=== PATIENT | female | born 2000 | race Caucasian/White ===

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

== ENCOUNTER 2019-03-12 11:21 | Emergency (ER) | payer MEDICAID, OTHER ==
--- NOTE | 2019-03-12 11:52 | ERPHSYRPT ---
- History of Present Illness Time Seen by Provider: 03/12/19 11:49 Source: patient Exam Limitations: no limitations Physician History: 18-year-old white female arrives with complaint of feeling like her legs are swollen off and on for 2 months she states the swelling comes and goes Past medical history is negative Past surgical history includes appendectomy and eye surgery Last menstrual period 3 weeks ago Timing/Duration: other (2-3 months) Severity: mild Modifying Factors: Improves With: nothing Associated Symptoms: No nausea, No vomiting, No abdominal pain, No shortness of breath, No heartburn, No diaphoresis, No cough, No chills, No chest pain, No fever, No headaches, No loss of appetite (T1 wash her ear out), No malaise, No rash, No syncope, No seizure, No weakness Allergies/Adverse Reactions: venom-honey bee [bee venom (honey bee)] Allergy (Verified 04/21/18 06:41) Hx Tetanus, Diphtheria Vaccination/Date Given: Yes Hx Influenza Vaccination/Date Given: No Hx Pneumococcal Vaccination/Date Given: No - Review of Systems Constitutional: No Symptoms, No Fever, No Chills Eyes: No Symptoms Ears, Nose, & Throat: Other (left ear feels full), No Ear Discharge, No Hearing Changes, No Tinnitus, No Nose Pain, No Nose Congestion, No Nose Discharge, No Sinus Drainage, No Epistaxis, No Mouth Pain, No Mouth Swelling, No Loose Teeth, No Throat Pain, No Throat Swelling, No Hoarse, No Painful Swallowing, No Snoring , No Stridor Respiratory: No Cough, No Dyspnea Cardiac: Edema (lower extremity edema), No Chest Pain, No Syncope Abdominal/Gastrointestinal: No Abdominal Pain, No Nausea, No Vomiting, No Diarrhea Genitourinary Symptoms: No Dysuria Musculoskeletal: No Back Pain, No Neck Pain Skin: No Rash Neurological: No Dizziness, No Focal Weakness, No Sensory Changes Psychological: No Symptoms Endocrine: No Symptoms All Other Systems: Reviewed and Negative - Past Medical History Pertinent Past Medical History: Yes Neurological History: No Pertinent History ENT History: No Pertinent History Cardiac History: No Pertinent History Respiratory History: No Pertinent History Endocrine Medical History: No Pertinent History Musculoskeletal History: Fractures GI Medical History: No Pertinent History History: No Pertinent History Psycho-Social History: No Pertinent History Female Reproductive Disorders: No Pertinent History - Past Surgical History Past Surgical History: Yes Neuro Surgical History: No Pertinent History Cardiac: No Pertinent History Respiratory: No Pertinent History Gastrointestinal: Appendectomy Genitourinary: No Pertinent History Musculoskeletal: No Pertinent History Female Surgical History: No Pertinent History Other Surgical History: eye surgery - Social History Smoking Status: Current every day smoker Exposure to second hand smoke: No Drug Use: none Patient Lives Alone: No - Nursing Vital Signs Nursing Vital Signs: Initial Vital Signs Temperature 98.5 F 03/12/19 11:43 Pulse Rate 84 03/12/19 11:43 Respiratory Rate 16 03/12/19 11:43 Blood Pressure 140/82 03/12/19 11:43 O2 Sat by Pulse Oximetry 100 03/12/19 11:43 Pain Scale Pain Intensity 0 - Physical Exam General Appearance: no apparent distress, alert Eye Exam: PERRL/EOMI, eyes nml inspection Ears, Nose, Throat Exam: pharynx normal, moist mucous membranes, other (cerumen in left ear canal), No dry mucous membranes Neck Exam: normal inspection, non-tender, supple, full range of motion Respiratory Exam: normal breath sounds, lungs clear, No respiratory distress Cardiovascular Exam: regular rate/rhythm, normal heart sounds, normal peripheral pulses, capillary refill <2 sec Gastrointestinal/Abdomen Exam: soft, normal bowel sounds, No tenderness, No mass Back Exam: normal inspection, normal range of motion, No CVA tenderness, No vertebral tenderness Extremity Exam: normal inspection, normal range of motion, pelvis stable Neurologic Exam: alert, oriented x 3, cooperative, administrative assistant II-XII nml as tested, normal mood/affect, nml cerebellar function, nml station & gait, sensation nml, No motor deficits Skin Exam: normal color, warm, dry, No rash Lymphatic Exam: No adenopathy (bbolus her sats) SpO2 Interpretation: normal (100%) - Course Nursing assessment & vital signs reviewed: Yes EKG Interpreted by Me: RATE (81 bpm), Sinus Rhythm, NORMAL AXIS, Other (EKG: Sinus rhythm, 81 beats per minute, normal axis, no acute ST or T wave changes, normal EKG) Ordered Tests: Active Orders 24 hr Category Date Time Status EKG-ER Only STAT Care 03/12/19 11:53 Active CBC W DIFF Stat Lab 03/12/19 12:15 Completed CMP Stat Lab 03/12/19 12:15 Completed HCG QUALITATIVE,SERUM Stat Lab 03/12/19 12:15 Completed UA W/RFX UR CULTURE Stat Lab 03/12/19 11:49 Completed Lab/Rad Data: Laboratory Result Diagrams 03/12/19 12:15 03/12/19 12:15 Laboratory Results 03/12/19 03/12/19 03/12/19 Range/Units 12:15 12:15 12:15 WBC 11.9 H (4.0-10.5) K/mm3 RBC 4.77 (4.1-5.4) M/mm3 Hgb 13.3 (12.0-16.0) gm/dl Hct 40.5 (35-47) % MCV 84.9 (78-100) fl MCH 27.9 (26-32) pg MCHC 32.8 (32-36) g/dl RDW 12.9 (11.5-14.0) % Plt Count 298 (150-450) K/mm3 MPV 10.1 H (6-9.5) fl Gran % 71.3 H (36.0-66.0) % Eos # (Auto) 0.24 (0-0.5) Absolute Lymphs (auto) 2.17 (1.0-4.6) Absolute Monos (auto) 0.99 (0.0-1.3) Lymphocytes % 18.2 L (24.0-44.0) % Monocytes % 8.3 (0.0-12.0) % Eosinophils % 2.0 (0.00-5.0) % Basophils % 0.2 (0.0-0.4) % Absolute Granulocytes 8.52 H (1.4-6.9) Basophils # 0.02 (0-0.4) Sodium 139 (137-145) mmol/L Potassium 4.1 (3.5-5.1) mmol/L Chloride 108 H (98-107) mmol/L Carbon Dioxide 22 (22-30) mmol/L Anion Gap 12.2 (5-15) MEQ/L BUN 8 (7-17) mg/dL Creatinine 0.67 (0.52-1.04) mg/dL Estimated GFR > 60.0 ML/MIN Glucose 86 (74-106) mg/dL Calcium 9.0 (8.4-10.2) mg/dL Total Bilirubin 0.50 (0.2-1.3) mg/dL AST 28 (14-36) U/L ALT 17 (0-35) U/L Alkaline Phosphatase 57 (38-126) U/L Serum Total Protein 5.6 L (6.3-8.2) g/dL Albumin 3.2 L (3.5-5.0) g/dL Serum , Qual NEGATIVE (Negative) Urine Color (YELLOW) Urine Appearance (CLEAR) Urine pH (5-6) Ur Specific [place] (1.005-1.025) Urine Protein (Negative) Urine Ketones (NEGATIVE) Urine Blood (0-5) Ranjeet/ul Urine Nitrite (NEGATIVE) Urine Bilirubin (NEGATIVE) Urine Urobilinogen (0-1) mg/dL Ur Leukocyte Esterase (NEGATIVE) Urine WBC (Auto) (0-5) /HPF Urine RBC (Auto) (0-2) /HPF U Epithel Cells (Auto) (FEW) /HPF Urine Bacteria (Auto) (NEGATIVE) /HPF Urine Mucus (Auto) (NEGATIVE) /HPF Urine Culture Reflexed (NO) Urine Glucose (NEGATIVE) mg/dL 03/12/19 Range/Units 11:49 WBC (4.0-10.5) K/mm3 RBC (4.1-5.4) M/mm3 Hgb (12.0-16.0) gm/dl Hct (35-47) % MCV (78-100) fl MCH (26-32) pg MCHC (32-36) g/dl RDW (11.5-14.0) % Plt Count (150-450) K/mm3 MPV (6-9.5) fl Gran % (36.0-66.0) % Eos # (Auto) (0-0.5) Absolute Lymphs (auto) (1.0-4.6) Absolute Monos (auto) (0.0-1.3) Lymphocytes % (24.0-44.0) % Monocytes % (0.0-12.0) % Eosinophils % (0.00-5.0) % Basophils % (0.0-0.4) % Absolute Granulocytes (1.4-6.9) Basophils # (0-0.4) Sodium (137-145) mmol/L Potassium (3.5-5.1) mmol/L Chloride (98-107) mmol/L Carbon Dioxide (22-30) mmol/L Anion Gap (5-15) MEQ/L BUN (7-17) mg/dL Creatinine (0.52-1.04) mg/dL Estimated GFR ML/MIN Glucose (74-106) mg/dL Calcium (8.4-10.2) mg/dL Total Bilirubin (0.2-1.3) mg/dL AST (14-36) U/L ALT (0-35) U/L Alkaline Phosphatase (38-126) U/L Serum Total Protein (6.3-8.2) g/dL Albumin (3.5-5.0) g/dL Serum , Qual (Negative) Urine Color YELLOW (YELLOW) Urine Appearance SLIGHTLY CLOUDY (CLEAR) Urine pH 6.0 (5-6) Ur Specific [place] 1.025 (1.005-1.025) Urine Protein NEGATIVE (Negative) Urine Ketones NEGATIVE (NEGATIVE) Urine Blood NEGATIVE (0-5) Ranjeet/ul Urine Nitrite NEGATIVE (NEGATIVE) Urine Bilirubin NEGATIVE (NEGATIVE) Urine Urobilinogen 2 (0-1) mg/dL Ur Leukocyte Esterase NEGATIVE (NEGATIVE) Urine WBC (Auto) 0-2 (0-5) /HPF Urine RBC (Auto) NONE (0-2) /HPF U Epithel Cells (Auto) RARE (FEW) /HPF Urine Bacteria (Auto) NONE SEEN (NEGATIVE) /HPF Urine Mucus (Auto) MODERATE (NEGATIVE) /HPF Urine Culture Reflexed NO (NO) Urine Glucose NEGATIVE (NEGATIVE) mg/dL - Progress Progress: improved Progress Note: 03/12/19 12:38 18-year-old white female arrives with complaint of edema on her lower extremities off and on for 2-3 months. On physical examination I see no signs of edema patient's chemistry urinalysis CBC all normal. Patient also complaining of feeling like her left ear is clogged. Patient does have cerumen in her left ear canal. Will go ahead and release patient patient to use OTC Debrox for her ear. Followup with her family . - Departure Departure Disposition: Home Clinical Impression: reported lower extremity edema Cerumen impaction Qualifiers: Laterality: left Qualified Code(s): H61.22 - Impacted cerumen, left ear Condition: Fair Critical Care Time: No Referrals: GHAZAL NEWBERRY MD [Primary Care Provider] - Additional Instructions: Return home. Today I do not see obvious edema sometimes you can get edema from the heat or excessive salt intake. Followup with your family if this continues to cause problems with you. Debrox (OTC) left ear as directed for cerumen. Followup with your family . Return for acute distress severe symptoms or for any problems.
[2019-03-12 12:15] LABS: Appearance SLIGHTLY CLOUDY (CLEAR); Bilirubin NEGATIVE (NEGATIVE); Blood NEGATIVE Ery/ul (0-5); Epithelial Cells RARE /HPF (FEW); Glucose NEGATIVE (NEGATIVE); Ketones NEGATIVE (NEGATIVE); Leukocyte Esterase NEGATIVE (NEGATIVE); Mucus MODERATE /HPF (NEGATIVE); Nitrite NEGATIVE (NEGATIVE); Protein,Urine Dip NEGATIVE (Negative); Specific Gravity 1.025 (1.005-1.025); Urobilinogen 2 mg/dL (0-1); WBC 0-2 /HPF (0-5)
[2019-03-12 12:16] LABS: Bacteria NONE SEEN /HPF (NEGATIVE)
[2019-03-12 12:24] LABS: BASOPHIL % 0.2 % (0.0-0.4); Basophil (Absolute #) 0.02 (0-0.4); Eosinophil (Absolute #) 0.24 (0-0.5); Granulocyte Absolute (ANC) 8.52 (1.4-6.9); Granulocytes % 71.3 % (36.0-66.0); Hematocrit 40.5 % (35-47); Hemoglobin 13.3 gm/dl (12.0-16.0); Lymphocyte (Absolute #) 2.17 (1.0-4.6); Lymphocytes % 18.2 % (24.0-44.0); Mean Cell Volume 84.9 fl (78-100); Mean Corpuscular Hemoglobin 27.9 pg (26-32); Mean Corpuscular Hgb Concent. 32.8 g/dl (32-36); Mean Platelet Volume 10.1 fl (6-9.5); Monocyte (Absolute #) 0.99 (0.0-1.3); Monocytes % 8.3 % (0.0-12.0); Platelet Count 298 K/mm3 (150-450); Red Blood Count 4.77 M/mm3 (4.1-5.4); Red Cell Distribution Width 12.9 % (11.5-14.0); White Blood Count 11.9 K/mm3 (4.0-10.5)
[2019-03-12 12:31] LABS: ALBUMIN 3.2 g/dL (3.5-5.0); ALKALINE PHOSPHATASE 57 U/L (38-126); ANION GAP 12.2 MEQ/L (5-15); BLOOD UREA NITROGEN 8 mg/dL (7-17); CHLORIDE 108 mmol/L (98-107); Carbon Dioxide 22 mmol/L (22-30); Creatinine 1 0.67 mg/dL (0.52-1.04); Glucose 86 mg/dL (74-106); Potassium 4.1 mmol/L (3.5-5.1); SGOT/AST 28 U/L (14-36); SGPT/ALT 17 U/L (0-35); SODIUM 139 mmol/L (137-145); Total Protein 5.6 g/dL (6.3-8.2)
[2019-03-12 13:42] VITALS: BP 136/82; PULSE 74; O2SAT 97
== END 2019-03-12 13:42 | disposition home or self-care (01) ==
LOC: ED 11:21
DX: R60.0 Localized edema (principal); H61.22 Impacted cerumen, left ear
CPT/HCPCS: 36415; 80053; 81001; 81025; 85025; 93005; 99283

== ENCOUNTER 2019-05-08 09:45 | Emergency (ER) | payer MEDICAID ==
[2019-05-08 10:09] VITALS: BP 118/72
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
[2019-05-08 11:55] VITALS: PULSE 76; O2SAT 99
== END 2019-05-08 11:58 | disposition home or self-care (01) ==
LOC: ED 09:45
DX: S00.93XA Contusion of unspecified part of head, initial encounter (principal); Y04.0XXA Assault by unarmed brawl or fight, initial encounter
CPT/HCPCS: 70450; 99283

== ENCOUNTER 2019-11-02 08:52 | Emergency (ER) | payer MEDICAID ==
--- NOTE | 2019-11-02 08:55 | ERPHSYRPT ---
- History of Present Illness Time Seen by Provider: 11/02/19 08:55 Source: patient, family Exam Limitations: no limitations Physician History: 19 y/o white female presents with 1 week h/o "not feeling well". pt states abd pain mid abd cramping for 4 days. 2 day h/o n/v/d. pt denies vaginal bleeding, rectal bleeding, vaginal discharge or urinary sx. pt has had an appendectomy in the past. Timing/Duration: week(s), worse Severity: mild Associated Symptoms: nausea, vomiting, abdominal pain Allergies/Adverse Reactions: venom-honey bee [bee venom (honey bee)] Allergy (Verified 11/02/19 09:07) Hx Tetanus, Diphtheria Vaccination/Date Given: Yes Hx Influenza Vaccination/Date Given: No Hx Pneumococcal Vaccination/Date Given: No - Review of Systems Constitutional: No Symptoms Eyes: No Symptoms Ears, Nose, & Throat: No Symptoms Respiratory: No Symptoms Cardiac: No Symptoms Abdominal/Gastrointestinal: Abdominal Pain, Nausea, Vomiting, Diarrhea Genitourinary Symptoms: No Symptoms Musculoskeletal: No Symptoms Skin: No Symptoms Neurological: No Symptoms Psychological: No Symptoms Endocrine: No Symptoms Hematologic/Lymphatic: No Symptoms Immunological/Allergic: No Symptoms All Other Systems: Reviewed and Negative - Past Medical History Pertinent Past Medical History: Yes Neurological History: No Pertinent History ENT History: No Pertinent History Cardiac History: No Pertinent History Respiratory History: No Pertinent History Endocrine Medical History: No Pertinent History Musculoskeletal History: Fractures GI Medical History: No Pertinent History History: No Pertinent History Psycho-Social History: No Pertinent History Female Reproductive Disorders: No Pertinent History - Past Surgical History Past Surgical History: Yes Neuro Surgical History: No Pertinent History Cardiac: No Pertinent History Respiratory: No Pertinent History Gastrointestinal: Appendectomy Genitourinary: No Pertinent History Musculoskeletal: No Pertinent History Female Surgical History: No Pertinent History Other Surgical History: eye surgery - Social History Smoking Status: Current every day smoker Exposure to second hand smoke: No Drug Use: none Patient Lives Alone: No - Nursing Vital Signs Nursing Vital Signs: Initial Vital Signs Temperature 98.1 F 11/02/19 09:02 Pulse Rate 88 11/02/19 09:02 Respiratory Rate 18 11/02/19 09:02 Blood Pressure 115/82 11/02/19 09:02 O2 Sat by Pulse Oximetry 98 11/02/19 09:02 Pain Scale Pain Intensity 6 - Physical Exam General Appearance: mild distress, alert, anxiety Eye Exam: PERRL/EOMI, eyes nml inspection Ears, Nose, Throat Exam: normal ENT inspection, moist mucous membranes Neck Exam: normal inspection, non-tender, supple, full range of motion Respiratory Exam: normal breath sounds, lungs clear, airway intact, No chest tenderness, No respiratory distress Cardiovascular Exam: regular rate/rhythm, normal heart sounds, normal peripheral pulses Gastrointestinal/Abdomen Exam: soft, normal bowel sounds, tenderness (mild diffuse), No guarding, No rebound Pelvic Exam: not done Rectal Exam: not done Back Exam: normal inspection, normal range of motion, No CVA tenderness Extremity Exam: normal inspection, normal range of motion, pelvis stable Neurologic Exam: alert, oriented x 3, cooperative, institutional aide II-XII nml as tested, normal mood/affect, nml cerebellar function, nml station & gait, sensation nml Skin Exam: normal color, warm, dry Lymphatic Exam: adenopathy SpO2 Interpretation: normal O2 Delivery: Room Air - Course Nursing assessment & vital signs reviewed: Yes Ordered Tests: Active Orders 24 hr Category Date Time Status IV Insertion STAT Care 11/02/19 09:27 Active ABDOMEN AND PELVIS W/0 CONTRAS [CT] Stat Exams 11/02/19 09:27 Completed AMYLASE Stat Lab 11/02/19 09:52 Completed CBC W DIFF Stat Lab 11/02/19 09:52 Completed CMP Stat Lab 11/02/19 09:52 Completed CULTURE,URINE Stat Lab 11/02/19 09:52 Received HCG,QUALITATIVE URINE Stat Lab 11/02/19 09:52 Completed LIPASE Stat Lab 11/02/19 09:52 Completed Lactic Acid Stat Lab 11/02/19 09:48 Completed UA W/RFX UR CULTURE Stat Lab 11/02/19 09:52 Completed Medication Summary Discontinued Medications Generic Name Dose Route Start Last Admin Trade Name Freq PRN Reason Stop Dose Admin Fluconazole 150 mg 11/02/19 11:23 Diflucan PO 11/02/19 11:24 STAT ONE Sodium Chloride 1,000 mls @ 999 mls/hr 11/02/19 09:27 11/02/19 11:19 Sodium Chloride 0.9% 1000 Ml IV 11/02/19 10:27 Infused .Q1H1M STA Infusion Sodium Chloride Confirm 11/02/19 09:43 Sodium Chloride 0.9% 1000 Ml Administered 11/02/19 09:44 Dose 1,000 mls @ ud .ROUTE .STK-MED ONE Ondansetron HCl 4 mg 11/02/19 09:27 11/02/19 09:47 Zofran 4 Mg/2 Ml Vial IV 11/02/19 09:28 4 mg STAT ONE Administration Ondansetron HCl Confirm 11/02/19 09:43 Zofran 4 Mg/2 Ml Vial Administered 11/02/19 09:44 Dose 4 mg .ROUTE .STK-MED ONE Lab/Rad Data: Laboratory Result Diagrams 11/02/19 09:52 11/02/19 09:52 Laboratory Results 11/02/19 11/02/19 11/02/19 Range/Units 09:52 09:52 09:52 WBC (4.0-10.5) K/mm3 RBC (4.1-5.4) M/mm3 Hgb (12.0-16.0) gm/dl Hct (35-47) % MCV (78-100) fl MCH (26-32) pg MCHC (32-36) g/dl RDW (11.5-14.0) % Plt Count (150-450) K/mm3 MPV (7.5-11.0) fl Gran % (36.0-66.0) % Eos # (Auto) (0-0.5) Absolute Lymphs (auto) (1.0-4.6) Absolute Monos (auto) (0.0-1.3) Lymphocytes % (24.0-44.0) % Monocytes % (0.0-12.0) % Eosinophils % (0.00-5.0) % Basophils % (0.0-0.4) % Absolute Granulocytes (1.4-6.9) Basophils # (0-0.4) Sodium (137-145) mmol/L Potassium (3.5-5.1) mmol/L Chloride (98-107) mmol/L Carbon Dioxide (22-30) mmol/L Anion Gap (5-15) MEQ/L BUN (7-17) mg/dL Creatinine (0.52-1.04) mg/dL Estimated GFR ML/MIN Glucose (74-106) mg/dL Lactic Acid (0.4-2.0) Calcium (8.4-10.2) mg/dL Total Bilirubin (0.2-1.3) mg/dL AST (14-36) U/L ALT (0-35) U/L Alkaline Phosphatase (38-126) U/L Serum Total Protein (6.3-8.2) g/dL Albumin (3.5-5.0) g/dL Amylase (30-110) U/L Lipase (23-300) U/L Urine Color YELLOW (YELLOW) Urine Appearance TURBID (CLEAR) Urine pH 5.0 (5-6) Ur Specific [place] 1.030 (1.005-1.025) Urine Protein NEGATIVE (Negative) Urine Ketones NEGATIVE (NEGATIVE) Urine Blood NEGATIVE (0-5) Ranjeet/ul Urine Nitrite NEGATIVE (NEGATIVE) Urine Bilirubin NEGATIVE (NEGATIVE) Urine Urobilinogen NEGATIVE (0-1) mg/dL Ur Leukocyte Esterase NEGATIVE (NEGATIVE) Urine WBC (Auto) 3-5 (0-5) /HPF Urine RBC (Auto) 0-2 (0-2) /HPF U Epithel Cells (Auto) FEW (FEW) /HPF Urine Bacteria (Auto) MODERATE (NEGATIVE) /HPF Amorphous Crystals MANY (NEGATIVE) /HPF Urine Mucus (Auto) SLIGHT (NEGATIVE) /HPF Urine Yeast (Budding) Rare (NEGATIVE) /HPF Urine Culture Reflexed YES (NO) Urine Glucose NEGATIVE (NEGATIVE) mg/dL Urine HCG, Qual NEGATIVE (Negative) Influenza Type A Ag NEGATIVE (NEGATIVE) Influenza Type B Ag NEGATIVE (NEGATIVE) RSV (PCR) NEGATIVE (Negative) 11/02/19 11/02/19 11/02/19 Range/Units 09:52 09:52 09:48 WBC 12.9 H (4.0-10.5) K/mm3 RBC 4.93 (4.1-5.4) M/mm3 Hgb 13.7 (12.0-16.0) gm/dl Hct 40.6 (35-47) % MCV 82.4 (78-100) fl MCH 27.8 (26-32) pg MCHC 33.7 (32-36) g/dl RDW 13.4 (11.5-14.0) % Plt Count 287 (150-450) K/mm3 MPV 10.4 (7.5-11.0) fl Gran % 78.3 H (36.0-66.0) % Eos # (Auto) 0.31 (0-0.5) Absolute Lymphs (auto) 1.34 (1.0-4.6) Absolute Monos (auto) 1.13 (0.0-1.3) Lymphocytes % 10.4 L (24.0-44.0) % Monocytes % 8.8 (0.0-12.0) % Eosinophils % 2.4 (0.00-5.0) % Basophils % 0.1 (0.0-0.4) % Absolute Granulocytes 10.11 H (1.4-6.9) Basophils # 0.01 (0-0.4) Sodium 142 (137-145) mmol/L Potassium 3.5 (3.5-5.1) mmol/L Chloride 107 (98-107) mmol/L Carbon Dioxide 23 (22-30) mmol/L Anion Gap 15.0 (5-15) MEQ/L BUN 9 (7-17) mg/dL Creatinine 0.71 (0.52-1.04) mg/dL Estimated GFR > 60.0 ML/MIN Glucose 78 (74-106) mg/dL Lactic Acid 0.7 (0.4-2.0) Calcium 9.4 (8.4-10.2) mg/dL Total Bilirubin 0.40 (0.2-1.3) mg/dL AST 26 (14-36) U/L ALT 19 (0-35) U/L Alkaline Phosphatase 114 (38-126) U/L Serum Total Protein 7.2 (6.3-8.2) g/dL Albumin 4.2 (3.5-5.0) g/dL Amylase 66 (30-110) U/L Lipase 45 (23-300) U/L Urine Color (YELLOW) Urine Appearance (CLEAR) Urine pH (5-6) Ur Specific [place] (1.005-1.025) Urine Protein (Negative) Urine Ketones (NEGATIVE) Urine Blood (0-5) Ranjeet/ul Urine Nitrite (NEGATIVE) Urine Bilirubin (NEGATIVE) Urine Urobilinogen (0-1) mg/dL Ur Leukocyte Esterase (NEGATIVE) Urine WBC (Auto) (0-5) /HPF Urine RBC (Auto) (0-2) /HPF U Epithel Cells (Auto) (FEW) /HPF Urine Bacteria (Auto) (NEGATIVE) /HPF Amorphous Crystals (NEGATIVE) /HPF Urine Mucus (Auto) (NEGATIVE) /HPF Urine Yeast (Budding) (NEGATIVE) /HPF Urine Culture Reflexed (NO) Urine Glucose (NEGATIVE) mg/dL Urine HCG, Qual (Negative) Influenza Type A Ag (NEGATIVE) Influenza Type B Ag (NEGATIVE) RSV (PCR) (Negative) - Progress Progress: improved Progress Note: 11/02/19 11:25 ct abd/pelvis-colonic diarrhea Counseled pt/family regarding: lab results, diagnosis, need for follow-up, rad results - Departure Departure Disposition: Home Clinical Impression: Diarrhea, Yeast UTI Condition: Stable Critical Care Time: No Referrals: GHAZAL NEWBERRY MD [Primary Care Provider] - Additional Instructions: drink plenty of fluids. follow up with primary doctor for persistent symptoms Prescriptions: Metronidazole 500 mg [Flagyl 500 MG] 500 mg PO TID #21 tablet Ondansetron HCl [Zofran] 4 mg PO TID PRN #10 tablet PRN Reason: Nausea/Vomiting
[2019-11-02] MEDS ORDERED: Zofran 4 MG/2 ML VIAL IV ONE (09:27)
[2019-11-02] MEDS ORDERED: Sodium Chloride 0.9% 1000 ML 1,000 ML IV STA (09:27)
[2019-11-02] MEDS ORDERED: Zofran 4 MG/2 ML VIAL ONE (09:43)
[2019-11-02] MEDS ORDERED: Sodium Chloride 0.9% 1000 ML 1,000 ML ONE (09:43)
[2019-11-02 09:52] LABS: Absolute Neutrophil Ct (ANC) 10.11 (1.4-6.9); BASOPHIL % 0.1 % (0.0-0.4); Basophil (Absolute #) 0.01 (0-0.4); Eosinophil % 2.4 % (0.00-5.0); Eosinophil (Absolute #) 0.31 (0-0.5); Hematocrit 40.6 % (35-47); Hemoglobin 13.7 gm/dl (12.0-16.0); Lymphocyte (Absolute #) 1.34 (1.0-4.6); Lymphocytes % 10.4 % (24.0-44.0); Mean Cell Volume 82.4 fl (78-100); Mean Corpuscular Hemoglobin 27.8 pg (26-32); Mean Corpuscular Hgb Concent. 33.7 g/dl (32-36); Mean Platelet Volume 10.4 fl (7.5-11.0); Monocyte (Absolute #) 1.13 (0.0-1.3); Monocytes % 8.8 % (0.0-12.0); Neutrophil % 78.3 % (36.0-66.0); Platelet Count 287 K/mm3 (150-450); Red Blood Count 4.93 M/mm3 (4.1-5.4); Red Cell Distribution Width 13.4 % (11.5-14.0); White Blood Count 12.9 K/mm3 (4.0-10.5)
[2019-11-02 10:02] LABS: ALBUMIN 4.2 g/dL (3.5-5.0); ALKALINE PHOSPHATASE 114 U/L (38-126); AMYLASE 66 U/L (30-110); BLOOD UREA NITROGEN 9 mg/dL (7-17); CHLORIDE 107 mmol/L (98-107); Calcium 9.4 mg/dL (8.4-10.2); Carbon Dioxide 23 mmol/L (22-30); Creatinine 1 0.71 mg/dL (0.52-1.04); Glucose 78 mg/dL (74-106); LIPASE 45 U/L (23-300); Potassium 3.5 mmol/L (3.5-5.1); SGOT/AST 26 U/L (14-36); SGPT/ALT 19 U/L (0-35); SODIUM 142 mmol/L (137-145); Total Protein 7.2 g/dL (6.3-8.2)
[2019-11-02 10:21] LABS: Amourphous Crystal MANY /HPF (NEGATIVE); Appearance TURBID (CLEAR); Bacteria MODERATE /HPF (NEGATIVE); Bilirubin NEGATIVE (NEGATIVE); Blood NEGATIVE Ery/ul (0-5); Epithelial Cells FEW /HPF (FEW); Glucose NEGATIVE (NEGATIVE); Ketones NEGATIVE (NEGATIVE); Leukocyte Esterase NEGATIVE (NEGATIVE); Mucus SLIGHT /HPF (NEGATIVE); Nitrite NEGATIVE (NEGATIVE); Protein,Urine Dip NEGATIVE (Negative); Urobilinogen NEGATIVE mg/dL (0-1)
[2019-11-02 10:22] LABS: Budding Yeast Rare /HPF (NEGATIVE); RBC 0-2 /HPF (0-2)
[2019-11-02 10:34] LABS: INFLUENZA A NEGATIVE (NEGATIVE); INFLUENZA B NEGATIVE (NEGATIVE); RESPIRATORY SYNCTIAL VIRUS NEGATIVE (Negative)
--- NOTE | 2019-11-02 10:43 | XRAY ---
Indication: Lower abdomen pain, nausea, and vomiting. Multiple contiguous axial images obtained through the abdomen and pelvis without contrast as ordered. Comparison: March 11, 2018. Lung bases remain clear. Heart is not enlarged. Noncontrasted stomach and bowel loops appear nonobstructed again with previous reported appendectomy. Minimal/mild fluid distended colon favoring diarrhea. No free fluid/air. Remaining liver, gallbladder, pancreas, spleen, adrenal glands, kidneys, ureters, bladder, uterus, and aorta appear unremarkable for noncontrast exam. Osseous structures intact. Impression: Colonic diarrhea. Remaining CT abdomen/pelvis without contrast exam is negative.
[2019-11-02] MEDS ORDERED: DIFLUCAN PO ONE (11:23)
[2019-11-02 11:43] VITALS: BP 103/64; PULSE 89; O2SAT 97
== END 2019-11-02 11:52 | disposition home or self-care (01) ==
LOC: ED 08:52
DX: R19.7 Diarrhea, unspecified (principal); B37.49 Other urogenital candidiasis; N39.0 Urinary tract infection, site not specified
CPT/HCPCS: 36415; 74176; 80053; 81001; 82150; 83605; 83690; 84703; 85025; 87086; 87631; 96360; 96374; 99284; J2405; A9270-GY

== ENCOUNTER 2020-04-09 04:57 | Emergency (ER) | payer MEDICAID ==
--- NOTE | 2020-04-09 05:14 | ERPHSYRPT ---
- History of Present Illness Time Seen by Provider: 04/09/20 05:09 Source: patient, family Exam Limitations: no limitations Physician History: pt has Hx of left ankle fx in past and it turned this evening and she thinks it may be broken again - no other c/o injury or symptoms. Method of Injury: twisted Occurred: just prior to arrival Quality: constant, sharpness Severity of Pain-Max: moderate Severity of Pain-Current: moderate Lower Extremities Pain: ankle: left Modifying Factors: Improves With: movement Associated Symptoms: popping sensation Allergies/Adverse Reactions: venom-honey bee [bee venom (honey bee)] Allergy (Verified 04/09/20 05:10) Hx Tetanus, Diphtheria Vaccination/Date Given: Yes Hx Influenza Vaccination/Date Given: No Hx Pneumococcal Vaccination/Date Given: No - Review of Systems Constitutional: No Fever, No Chills Eyes: No Symptoms Ears, Nose, & Throat: No Symptoms Respiratory: No Cough, No Dyspnea Cardiac: No Chest Pain, No Edema, No Syncope Abdominal/Gastrointestinal: No Abdominal Pain, No Nausea, No Vomiting, No Diarrhea Genitourinary Symptoms: No Dysuria Musculoskeletal: No Back Pain, No Neck Pain Skin: No Rash Neurological: No Dizziness, No Focal Weakness, No Sensory Changes Psychological: No Symptoms Endocrine: No Symptoms Hematologic/Lymphatic: No Symptoms Immunological/Allergic: No Symptoms All Other Systems: Reviewed and Negative - Past Medical History Pertinent Past Medical History: No Neurological History: No Pertinent History ENT History: No Pertinent History Cardiac History: No Pertinent History Respiratory History: No Pertinent History Endocrine Medical History: No Pertinent History Musculoskeletal History: Fractures GI Medical History: No Pertinent History History: No Pertinent History Psycho-Social History: No Pertinent History Female Reproductive Disorders: No Pertinent History - Past Surgical History Past Surgical History: Yes Neuro Surgical History: No Pertinent History Cardiac: No Pertinent History Respiratory: No Pertinent History Gastrointestinal: Appendectomy Genitourinary: No Pertinent History Musculoskeletal: No Pertinent History Female Surgical History: No Pertinent History Other Surgical History: eye surgery - Social History Smoking Status: Never smoker Exposure to second hand smoke: Yes Drug Use: none Patient Lives Alone: No - Nursing Vital Signs Nursing Vital Signs: Initial Vital Signs Temperature 98.1 F 04/09/20 05:01 Pulse Rate 67 04/09/20 05:01 Respiratory Rate 16 04/09/20 05:01 Blood Pressure 115/75 04/09/20 05:01 O2 Sat by Pulse Oximetry 97 04/09/20 05:01 Pain Scale Pain Intensity 6 - Physical Exam General Appearance: no apparent distress, alert Eyes, Ears, Nose, Throat Exam: moist mucous membranes Neck Exam: non-tender, supple Cardiovascular/Respiratory Exam: chest non-tender, normal breath sounds, regular rate/rhythm, no respiratory distress Gastrointestinal/Abdominal Exam: non-tender, guarding Back Exam: normal inspection, No vertebral tenderness Hips Exam: bilateral: non-tender, normal inspection, normal range of motion, no evidence of injury Legs Exam: bilateral leg: non-tender, normal inspection, normal range of motion, no evidence of injury Knees Exam: bilateral knee: non-tender, normal inspection, normal range of motion, no evidence of injury Ankle Exam: right ankle: non-tender, normal inspection, normal range of motion, no evidence of injury, left ankle: bone tenderness, joint effusion, limited range of motion, pain, swelling Foot Exam: bilateral foot: non-tender, normal inspection, normal range of motion, no evidence of injury DTR - Lower Extremities Exam: knee (R): 2+, knee (L): 2+, ankle (R): 2+, ankle (L): 2+ Neuro/Tendon Exam: normal sensation, normal motor functions Mental Status Exam: alert, oriented x 3, cooperative Skin Exam: normal color, warm, dry SpO2 Interpretation: normal SpO2: 97 O2 Delivery: Room Air Procedures - Splinting Location of Splint: Left, Ankle Type of Splint: Orthoglass Short Leg Splint Splint Applied By: ED Nurse Pre-Proc Neuro Vasc Exam: normal Post-Proc Neuro Vasc Exam: neurovascular intact, good alignment, unchanged from pre-exam - Course Nursing assessment & vital signs reviewed: Yes - Radiology Exams Left Ankle X-ray Interpretation: Reviewed by me, Non-displaced Fracture (unknown age ) Ordered Tests: Active Orders 24 hr Category Date Time Status ANKLE (3 VIEWS) Stat Exams 04/09/20 05:08 Taken - Progress Progress: improved, re-examined Counseled pt/family regarding: diagnosis, need for follow-up, rad results - Departure Departure Disposition: Home Clinical Impression: Ankle sprain, left ankle fracture- unknown age Condition: Good Critical Care Time: No Referrals: GHAZAL NEWBERRY MD [Primary Care Provider] - Instructions: Ankle Sprain (DC), Ankle Fracture (DC), Avulsion Fracture (DC) Additional Instructions: use splint and followup with your Dr this week - final x-ray report this week return meantime if any concerns
[2020-04-09 05:55] VITALS: BP 108/70; PULSE 61; O2SAT 99
--- NOTE | 2020-04-09 08:02 | XRAY ---
Indication: Pain following injury one day earlier. Comparison: March 29, 2018. 3 view left ankle demonstrates stable well-circumscribed lateral malleolus tip ossification either developmental versus old injury. No new/acute bony, articular, or soft tissue abnormalities.
== END 2020-04-09 05:54 | disposition home or self-care (01) ==
LOC: ED 04:57
DX: S82.892A Other fracture of left lower leg, initial encounter for closed fracture (principal); X50.0XXA Overexertion from strenuous movement or load, initial encounter
CPT/HCPCS: 29515; 73610; 99284

== ENCOUNTER 2020-12-09 10:51 | Emergency (ER) | payer OTHER ==
[2020-12-09 11:05] VITALS: O2SAT 98
[2020-12-09 11:17] LABS: Absolute Neutrophil Ct (ANC) 7.38 (1.4-6.9); BASOPHIL % 0.2 % (0.0-0.4); Basophil (Absolute #) 0.02 (0-0.4); Eosinophil % 1.5 % (0.00-5.0); Eosinophil (Absolute #) 0.14 (0-0.5); Hematocrit 41.3 % (35-47); Hemoglobin 13.4 gm/dl (12.0-16.0); Lymphocyte (Absolute #) 1.51 (1.0-4.6); Lymphocytes % 15.7 % (24.0-44.0); Mean Corpuscular Hemoglobin 27.6 pg (26-32); Mean Corpuscular Hgb Concent. 32.4 g/dl (32-36); Mean Platelet Volume 10.5 fl (7.5-11.0); Monocyte (Absolute #) 0.58 (0.0-1.3); Neutrophil % 76.6 % (36.0-66.0); Platelet Count 327 K/mm3 (150-450); Red Blood Count 4.86 M/mm3 (4.1-5.4); Red Cell Distribution Width 13.1 % (11.5-14.0); White Blood Count 9.6 K/mm3 (4.0-10.5)
[2020-12-09 11:31] LABS: ALBUMIN 4.1 g/dL (3.5-5.0); ALKALINE PHOSPHATASE 73 U/L (38-126); ANION GAP 11.9 MEQ/L (5-15); BLOOD UREA NITROGEN 9 mg/dL (7-17); CHLORIDE 107 mmol/L (98-107); Calcium 9.3 mg/dL (8.4-10.2); Carbon Dioxide 20 mmol/L (22-30); Creatinine 1 0.63 mg/dL (0.52-1.04); EST GLOMERULAR FILTRATION RATE > 60.0 ML/MIN; Glucose 124 mg/dL (74-106); Potassium 3.7 mmol/L (3.5-5.1); SGOT/AST 21 U/L (14-36); SGPT/ALT 14 U/L (0-35); SODIUM 135 mmol/L (137-145); Total Protein 6.8 g/dL (6.3-8.2)
[2020-12-09 11:43] LABS: Amourphous Crystal FEW /HPF (NEGATIVE); Appearance CLOUDY (CLEAR); Bacteria MODERATE /HPF (NEGATIVE); Bilirubin NEGATIVE (NEGATIVE); Blood MODERATE Ery/ul (0-5); Epithelial Cells FEW /HPF (FEW); Glucose NEGATIVE (NEGATIVE); Ketones NEGATIVE (NEGATIVE); Leukocyte Esterase SMALL (NEGATIVE); Mucus MANY /HPF (NEGATIVE); Nitrite POSITIVE (NEGATIVE); Protein,Urine Dip 30 (Negative); Specific Gravity 1.027 (1.005-1.025); Urobilinogen NEGATIVE mg/dL (0-1)
--- NOTE | 2020-12-09 12:13 | ERPHSYRPT ---
- History of Present Illness Time Seen by Provider: 12/09/20 11:00 Source: patient Exam Limitations: no limitations Patient Subjective Stated Complaint: Pt states that she found out a couple of days ago that she was and she began cramping yesterday and spotting so me blood, no cramps today but still spotting Triage Nursing Assessment: Pt was brought to the ER by her cousin, sue holderl, denies pain, first , denies any miscarriages, pulses normal, minimal pain with palpatation to the lower abdomen, doesn't appear to be in any distress Physician History: Patient is a 20-year-old 0 para 1 white female with an unknown last menstrual period who presents with a complaint of vaginal bleeding. She found out [address] Newberry's office that she was . She has not had an ultrasound. She started cramping yesterday and having some bleeding today. Timing/Duration: today Activites at Onset: none Quality: cramping Onset Location: vaginal Pain Radiation: none Severity of Pain-Max: mild Severity of Pain-Current: mild Prior abdominal problems: none Sexual intercourse history: non-contributory Modifying Factors: Improves With: nothing Associated Symptoms: Allergies/Adverse Reactions: venom-honey bee [bee venom (honey bee)] Allergy (Verified 12/09/20 11:05) Home Medications: Vits W-Ca,Fe,FA(<1Mg) [] 1 each PO DAILY 12/09/20 [History] Hx Tetanus, Diphtheria Vaccination/Date Given: Yes Hx Influenza Vaccination/Date Given: No Hx Pneumococcal Vaccination/Date Given: No Travel Risk - International Travel Have you traveled outside of the country in past 3 weeks: No - Coronavirus Screening Are you exhibiting any of the following symptoms?: No Close contact with a COVID-19 positive Pt in past 14-21 Days: No - Review of Systems Constitutional: No Fever, No Chills Eyes: No Symptoms Ears, Nose, & Throat: No Symptoms Respiratory: No Cough, No Dyspnea Cardiac: No Chest Pain, No Edema, No Syncope Abdominal/Gastrointestinal: No Abdominal Pain, No Nausea, No Vomiting, No Diarrhea Genitourinary Symptoms: Vaginal Bleeding, No Dysuria Musculoskeletal: No Back Pain, No Neck Pain Skin: No Rash Neurological: No Dizziness, No Focal Weakness, No Sensory Changes Psychological: No Symptoms Endocrine: No Symptoms All Other Systems: Reviewed and Negative - Past Medical History Pertinent Past Medical History: Yes Neurological History: No Pertinent History ENT History: No Pertinent History Cardiac History: No Pertinent History Respiratory History: No Pertinent History Endocrine Medical History: No Pertinent History Musculoskeletal History: Fractures GI Medical History: No Pertinent History History: No Pertinent History Psycho-Social History: No Pertinent History Female Reproductive Disorders: No Pertinent History - Past Surgical History Past Surgical History: Yes Neuro Surgical History: No Pertinent History Cardiac: No Pertinent History Respiratory: No Pertinent History Gastrointestinal: Appendectomy Genitourinary: No Pertinent History Musculoskeletal: No Pertinent History Female Surgical History: No Pertinent History Other Surgical History: eye surgery - Social History Smoking Status: Former smoker How long have you smoked: 3 yrs Exposure to second hand smoke: Yes Drug Use: none Patient Lives Alone: No - Female History Hx Last Menstrual Period: October? Hx Now: Yes - Nursing Vital Signs Nursing Vital Signs: Initial Vital Signs Temperature 98.9 F 12/09/20 10:58 Pulse Rate 88 12/09/20 10:58 Blood Pressure 127/80 12/09/20 10:58 O2 Sat by Pulse Oximetry 98 12/09/20 10:58 Pain Scale Pain Intensity 0 - Physical Exam General Appearance: no apparent distress, alert Eye Exam: PERRL/EOMI, eyes nml inspection Ears, Nose, Throat Exam: normal ENT inspection, TMs normal, pharynx normal, moist mucous membranes Neck Exam: normal inspection, non-tender, supple, full range of motion Respiratory Exam: normal breath sounds, lungs clear, No respiratory distress Cardiovascular Exam: regular rate/rhythm, normal heart sounds, normal peripheral pulses Gastrointestinal/Abdomen Exam: soft, No tenderness, No mass Back Exam: normal inspection, normal range of motion, No CVA tenderness, No vertebral tenderness Extremity Exam: normal inspection, normal range of motion, pelvis stable Neurologic Exam: alert, oriented x 3, cooperative, equal opportunity representative II-XII nml as tested, normal mood/affect, sensation nml, No motor deficits Skin Exam: normal color, warm, dry Lymphatic Exam: No adenopathy SpO2: 98 - Radiology Exams Hand X-ray Interpretation: Interpreted by me, Negative Ordered Tests: Active Orders 24 hr Category Date Time Status Splint STAT Care 12/09/20 12:39 Ordered OB <14 WKS 1ST GESTATION [US] Stat Exams 12/09/20 11:01 Ordered CBC W DIFF Stat Lab 12/09/20 11:15 Completed CMP Stat Lab 12/09/20 11:15 Completed CULTURE,URINE Stat Lab 12/09/20 11:03 Received HCG, Quantitative (Inhouse) Stat Lab 12/09/20 11:15 Completed UA W/RFX UR CULTURE Stat Lab 12/09/20 11:03 Completed Lab/Rad Data: Laboratory Result Diagrams 12/09/20 11:15 12/09/20 11:15 Laboratory Results 12/09/20 12/09/20 12/09/20 Range/Units 11:15 11:15 11:15 WBC 9.6 (4.0-10.5) K/mm3 RBC 4.86 (4.1-5.4) M/mm3 Hgb 13.4 (12.0-16.0) gm/dl Hct 41.3 (35-47) % MCV 85.0 (78-100) fl MCH 27.6 (26-32) pg MCHC 32.4 (32-36) g/dl RDW 13.1 (11.5-14.0) % Plt Count 327 (150-450) K/mm3 MPV 10.5 (7.5-11.0) fl Gran % 76.6 H (36.0-66.0) % Eos # (Auto) 0.14 (0-0.5) Absolute Lymphs (auto) 1.51 (1.0-4.6) Absolute Monos (auto) 0.58 (0.0-1.3) Lymphocytes % 15.7 L (24.0-44.0) % Monocytes % 6.0 (0.0-12.0) % Eosinophils % 1.5 (0.00-5.0) % Basophils % 0.2 (0.0-0.4) % Absolute Granulocytes 7.38 H (1.4-6.9) Basophils # 0.02 (0-0.4) Sodium 135 L (137-145) mmol/L Potassium 3.7 (3.5-5.1) mmol/L Chloride 107 (98-107) mmol/L Carbon Dioxide 20 L (22-30) mmol/L Anion Gap 11.9 (5-15) MEQ/L BUN 9 (7-17) mg/dL Creatinine 0.63 (0.52-1.04) mg/dL Estimated GFR > 60.0 ML/MIN Glucose 124 H (74-106) mg/dL Calcium 9.3 (8.4-10.2) mg/dL Total Bilirubin 0.40 (0.2-1.3) mg/dL AST 21 (14-36) U/L ALT 14 (0-35) U/L Alkaline Phosphatase 73 (38-126) U/L Serum Total Protein 6.8 (6.3-8.2) g/dL Albumin 4.1 (3.5-5.0) g/dL Beta HCG, Quant 3370.8 mIU/ml Urine Color (YELLOW) Urine Appearance (CLEAR) Urine pH (5-6) Ur Specific [place] (1.005-1.025) Urine Protein (Negative) Urine Ketones (NEGATIVE) Urine Blood (0-5) Ranjeet/ul Urine Nitrite (NEGATIVE) Urine Bilirubin (NEGATIVE) Urine Urobilinogen (0-1) mg/dL Ur Leukocyte Esterase (NEGATIVE) Urine WBC (Auto) (0-5) /HPF Urine RBC (Auto) (0-2) /HPF U Epithel Cells (Auto) (FEW) /HPF Urine Bacteria (Auto) (NEGATIVE) /HPF Amorphous Crystals (NEGATIVE) /HPF Urine Mucus (Auto) (NEGATIVE) /HPF Urine Culture Reflexed (NO) Urine Glucose (NEGATIVE) mg/dL 12/09/20 Range/Units 11:03 WBC (4.0-10.5) K/mm3 RBC (4.1-5.4) M/mm3 Hgb (12.0-16.0) gm/dl Hct (35-47) % MCV (78-100) fl MCH (26-32) pg MCHC (32-36) g/dl RDW (11.5-14.0) % Plt Count (150-450) K/mm3 MPV (7.5-11.0) fl Gran % (36.0-66.0) % Eos # (Auto) (0-0.5) Absolute Lymphs (auto) (1.0-4.6) Absolute Monos (auto) (0.0-1.3) Lymphocytes % (24.0-44.0) % Monocytes % (0.0-12.0) % Eosinophils % (0.00-5.0) % Basophils % (0.0-0.4) % Absolute Granulocytes (1.4-6.9) Basophils # (0-0.4) Sodium (137-145) mmol/L Potassium (3.5-5.1) mmol/L Chloride (98-107) mmol/L Carbon Dioxide (22-30) mmol/L Anion Gap (5-15) MEQ/L BUN (7-17) mg/dL Creatinine (0.52-1.04) mg/dL Estimated GFR ML/MIN Glucose (74-106) mg/dL Calcium (8.4-10.2) mg/dL Total Bilirubin (0.2-1.3) mg/dL AST (14-36) U/L ALT (0-35) U/L Alkaline Phosphatase (38-126) U/L Serum Total Protein (6.3-8.2) g/dL Albumin (3.5-5.0) g/dL Beta HCG, Quant mIU/ml Urine Color YELLOW (YELLOW) Urine Appearance CLOUDY (CLEAR) Urine pH 7.0 (5-6) Ur Specific [place] 1.027 (1.005-1.025) Urine Protein 30 (Negative) Urine Ketones NEGATIVE (NEGATIVE) Urine Blood MODERATE (0-5) Ranjeet/ul Urine Nitrite POSITIVE (NEGATIVE) Urine Bilirubin NEGATIVE (NEGATIVE) Urine Urobilinogen NEGATIVE (0-1) mg/dL Ur Leukocyte Esterase SMALL (NEGATIVE) Urine WBC (Auto) 16-25 (0-5) /HPF Urine RBC (Auto) 3-5 (0-2) /HPF U Epithel Cells (Auto) FEW (FEW) /HPF Urine Bacteria (Auto) MODERATE (NEGATIVE) /HPF Amorphous Crystals FEW (NEGATIVE) /HPF Urine Mucus (Auto) MANY (NEGATIVE) /HPF Urine Culture Reflexed YES (NO) Urine Glucose NEGATIVE (NEGATIVE) mg/dL - Progress Progress: unchanged Air Movement: good Blood Culture(s) Obtained: No Antibiotics given: No - Departure Departure Disposition: Home Clinical Impression: Hand contusion Condition: Stable Critical Care Time: No Referrals: GHAZAL NEWBERRY MD [Primary Care Provider] - Instructions: Contusion (DC) Additional Instructions: Was instructed to wear a splint for 3 to 5 days. Prescriptions: Oxycodone HCl/Acetaminophen [Percocet 5-325 mg Tablet] 1 each PO Q6H 3 Days #12 tablet MDD 4
[2020-12-09 14:35] VITALS: PULSE 79
--- NOTE | 2020-12-09 14:48 | XRAY ---
Indication: Spotting to 11 3 days. Unknown last menstrual.. Two-dimensional transabdominal early OB ultrasound performed. Comparison: None Uterus anteverted measuring 8.2 x 3.8 x 5.4 cm. Myometrium appears homogeneous. No endometrial cavity gestational sac, pole, heart tones, mass, or fluid collection. Left ovary measures 2.0 x 2.3 x 1.7 cm and demonstrates normal perfusion. Right ovary not seen. No suspicious adnexal mass or free fluid. Impression: 1. Transabdominal sonogram negative for intrauterine or ectopic . Patient refused transvaginal sonogram. 2. Nonvisualization right ovary.
[2020-12-09 15:05] VITALS: BP 130/70
== END 2020-12-09 15:12 | disposition home or self-care (01) ==
LOC: ED 10:51
DX: O46.91 Antepartum hemorrhage, unspecified, first trimester (principal); R10.9 Unspecified abdominal pain
CPT/HCPCS: 36415; 76801; 80053; 81001; 84702; 85025; 87077; 87086; 87186; 99284

== ENCOUNTER 2020-12-13 12:27 | Emergency (ER) | payer OTHER ==
--- NOTE | 2020-12-13 13:24 | ERPHSYRPT ---
- History of Present Illness Source: patient Patient Subjective Stated Complaint: Vaginal bleeding Triage Nursing Assessment: Patient ambulated back to ED and transferred self to bed. Patient A+O X3. Patient's skin pink, warm and dry. Patient states she is 6 weeks and has been small blood clots when she wipes after urinating. Patient denies pain or discomfort. Patient not bleeding enough for pad. Physician History: 20 yo wf w 6wk,5days IUP per US 12/09/20 presents w hematuria. Pt denies any abdominal-pelvic pain/dysuria/fever/N/V. Timing/Duration: today Activites at Onset: other (Urinating) Quality: other (No pain) Onset Location: other (No pain) Pain Radiation: none Severity of Pain-Max: none Severity of Pain-Current: none Prior abdominal problems: none Sexual intercourse history: other () Modifying Factors: Improves With: nothing Associated Symptoms: denies symptoms (Hematuria) Allergies/Adverse Reactions: venom-honey bee [bee venom (honey bee)] Allergy (Verified 12/13/20 12:38) Home Medications: Vits W-Ca,Fe,FA(<1Mg) [] 1 each PO DAILY 12/09/20 [History] Hx Tetanus, Diphtheria Vaccination/Date Given: Yes Hx Influenza Vaccination/Date Given: No Hx Pneumococcal Vaccination/Date Given: No Travel Risk - International Travel Have you traveled outside of the country in past 3 weeks: No - Coronavirus Screening Are you exhibiting any of the following symptoms?: No Close contact with a COVID-19 positive Pt in past 14-21 Days: No - Review of Systems Constitutional: No Symptoms Eyes: No Symptoms Ears, Nose, & Throat: No Symptoms Respiratory: No Symptoms Cardiac: No Symptoms Abdominal/Gastrointestinal: No Symptoms Genitourinary Symptoms: Hematuria Musculoskeletal: No Symptoms Skin: No Symptoms Neurological: No Symptoms Psychological: No Symptoms Endocrine: No Symptoms Hematologic/Lymphatic: No Symptoms Immunological/Allergic: No Symptoms - Past Medical History Pertinent Past Medical History: Yes Neurological History: No Pertinent History ENT History: No Pertinent History Cardiac History: No Pertinent History Respiratory History: No Pertinent History Endocrine Medical History: No Pertinent History Musculoskeletal History: Fractures GI Medical History: No Pertinent History History: No Pertinent History Psycho-Social History: No Pertinent History Female Reproductive Disorders: No Pertinent History - Past Surgical History Past Surgical History: Yes Neuro Surgical History: No Pertinent History Cardiac: No Pertinent History Respiratory: No Pertinent History Gastrointestinal: Appendectomy Genitourinary: No Pertinent History Musculoskeletal: No Pertinent History Female Surgical History: No Pertinent History Other Surgical History: eye surgery - Social History Smoking Status: Former smoker How long have you smoked: 3 yrs Exposure to second hand smoke: Yes Drug Use: none Patient Lives Alone: No Significant Family History: no pertinent family hx - Female History Hx Last Menstrual Period: unknown Hx Now: Yes Expected Date of Delivery: 08/02/21 - Nursing Vital Signs Nursing Vital Signs: Initial Vital Signs Pulse Rate 79 12/13/20 14:21 Respiratory Rate 18 12/13/20 14:21 Blood Pressure 97/58 12/13/20 14:21 O2 Sat by Pulse Oximetry 98 12/13/20 14:21 Pain Scale Pain Intensity 0 - Physical Exam General Appearance: no apparent distress Eye Exam: PERRL/EOMI, eyes nml inspection Ears, Nose, Throat Exam: normal ENT inspection, TMs normal, pharynx normal, moist mucous membranes Neck Exam: normal inspection, non-tender, supple, full range of motion, No meningismus, No mass, No Brudzinski Respiratory Exam: normal breath sounds, lungs clear, airway intact, No chest tenderness, No respiratory distress Cardiovascular Exam: regular rate/rhythm, normal heart sounds, normal peripheral pulses, No murmur Gastrointestinal/Abdomen Exam: soft, normal bowel sounds, No tenderness Pelvic Exam: not done Back Exam: normal inspection, normal range of motion, No CVA tenderness, No vertebral tenderness Extremity Exam: normal inspection, normal range of motion Neurologic Exam: alert, oriented x 3, cooperative, product tester II-XII nml as tested, normal mood/affect, nml station & gait, sensation nml, No motor deficits, No sensory deficit Skin Exam: normal color, warm, dry, No rash Lymphatic Exam: No adenopathy - Course Nursing assessment & vital signs reviewed: Yes Ordered Tests: Active Orders 24 hr Category Date Time Status CULTURE,URINE Stat Lab 12/13/20 13:25 Received HCG, Quantitative (Inhouse) Stat Lab 12/13/20 13:44 Completed UA W/RFX UR CULTURE Stat Lab 12/13/20 13:25 Completed Lab/Rad Data: Laboratory Results 12/13/20 12/13/20 Range/Units 13:44 13:25 Beta HCG, Quant 5474.5 mIU/ml Urine Color YELLOW (YELLOW) Urine Appearance TURBID (CLEAR) Urine pH 9.0 (5-6) Ur Specific [place] 1.018 (1.005-1.025) Urine Protein 30 (Negative) Urine Ketones NEGATIVE (NEGATIVE) Urine Blood MODERATE (0-5) Ranjeet/ul Urine Nitrite NEGATIVE (NEGATIVE) Urine Bilirubin NEGATIVE (NEGATIVE) Urine Urobilinogen 4 (0-1) mg/dL Ur Leukocyte Esterase NEGATIVE (NEGATIVE) Urine WBC (Auto) 3-5 (0-5) /HPF Urine RBC (Auto) NONE (0-2) /HPF U Epithel Cells (Auto) RARE (FEW) /HPF Urine Bacteria (Auto) NONE (NEGATIVE) /HPF Amorphous Crystals FEW (NEGATIVE) /HPF Urine Mucus (Auto) SLIGHT (NEGATIVE) /HPF Urine Culture Reflexed YES (NO) Urine Glucose NEGATIVE (NEGATIVE) mg/dL - Progress Progress Note: 12/13/20 20:25 Bhcg increasing at present. Pt has had US in last few days demonstrating IUP, so repeat US not done. Rx for macrobid sent to pharmacy for WBC in urine, but Rx cancelled when pt told me that she is on Keflex for UTI. - Departure Departure Disposition: Home Clinical Impression: Bleeding in early , UTI (urinary tract infection) Condition: Stable Critical Care Time: No Referrals: GHAZAL NEWBERRY MD [Primary Care Provider] - Instructions: Threatened Miscarriage (DC), Bleeding With (DC) Additional Instructions: Start macrobid twice a day for 5 days Follow up with Ob or family MD in 1-2 days Return to ER for increasing pain/bleeding/temperature greater than 100.5
[2020-12-13 14:22] VITALS: BP 97/58; PULSE 79; O2SAT 98
[2020-12-13 14:27] LABS: Amourphous Crystal FEW /HPF (NEGATIVE); Appearance TURBID (CLEAR); Bilirubin NEGATIVE (NEGATIVE); Blood MODERATE Ery/ul (0-5); Epithelial Cells RARE /HPF (FEW); Glucose NEGATIVE (NEGATIVE); Ketones NEGATIVE (NEGATIVE); Leukocyte Esterase NEGATIVE (NEGATIVE); Mucus SLIGHT /HPF (NEGATIVE); Nitrite NEGATIVE (NEGATIVE); Protein,Urine Dip 30 (Negative); Specific Gravity 1.018 (1.005-1.025); Urobilinogen 4 mg/dL (0-1)
== END 2020-12-13 14:57 | disposition home or self-care (01) ==
LOC: ED 12:27
DX: O20.9 Hemorrhage in early pregnancy, unspecified (principal); O23.41 Unspecified infection of urinary tract in pregnancy, first trimester; Z3A.01 Less than 8 weeks gestation of pregnancy
CPT/HCPCS: 36415; 81001; 84702; 87086; 99283

== ENCOUNTER 2020-12-20 05:58 | Day surgery (SDC) | payer OTHER ==
[2020-12-20 06:28] VITALS: O2SAT 97
[2020-12-20] MEDS ORDERED: Lactated Ringers 1,000 ML IV SCH (06:30)
[2020-12-20] MEDS ORDERED: Versed 2 MG/2 ML Injection ONE (06:49)
[2020-12-20] MEDS ORDERED: Versed 2 MG/2 ML Injection IV ONE (06:50)
[2020-12-20] MEDS ORDERED: Decadron 4 MG INJ ONE (07:00)
[2020-12-20] MEDS ORDERED: Xylocaine-Mpf 2% 5 Ml Vial ONE (07:00)
[2020-12-20] MEDS ORDERED: SUBLIMAZE 100 MCG/2 ML ONE (07:00)
[2020-12-20] MEDS ORDERED: DIPRIVAN 200 MG/20 ML IV ONE (07:00)
[2020-12-20] MEDS ORDERED: Zofran 4 MG/2 ML VIAL ONE (07:00)
[2020-12-20] MEDS ORDERED: KEFZOL 1 GM ONE (07:18)
--- NOTE | 2020-12-20 07:48 | PCM.DCORD ---
- Discharge Disposition: Home, Self-Care Condition: Stable Prescriptions: New Hydrocodone/Acetaminophen [Hydrocodone-Acetamin 5-325 mg ] 1 tab PO Q6HPRN PRN 5 Days #20 tablet MDD 4 PRN Reason: Pain Cephalexin Mh 500 mg [Keflex 500 mg] 500 mg PO QID #20 capsule Discontinued Vits W-Ca,Fe,FA(<1Mg) [] 1 each PO DAILY Follow up with: GHAZAL NEWBERRY MD [Primary Care Provider] - 2 weeks
--- NOTE | 2020-12-20 09:43 | OP ---
SURGERY DATE/TIME: 12/20/2020 0708 PREOPERATIVE DIAGNOSIS: Missed . POSTOPERATIVE DIAGNOSIS: Missed . PROCEDURE: Suction dilatation and curettage. SURGEON: Charles Lewis M.D. ANESTHESIA: General by Raul Martínez CRNA. ESTIMATED BLOOD LOSS: Approximately 50 ml. SPECIMEN: Products of conception. INDICATION: The patient is a 20 year-old 1, para 0 at approximately 7 weeks estimated gestational age. She had a previous ultrasound which showed viable intrauterine with heart tones identified. She developed heavier bleeding and had repeat ultrasound on 12/19/2020 which showed no heart tones consistent with missed . Risks, benefits and alternatives of suction dilatation and curettage were explained to the patient and her mother this morning including risk of bleeding, risk of infection and perforation of uterus and damage to surrounding structures. They elected to proceed. DESCRIPTION OF PROCEDURE: She underwent general anesthesia and was prepped and draped in the usual dorsal lithotomy position. A weighted speculum was inserted into the vagina and then the anterior edge of the cervix was grasped with single tooth tenaculum. Uterine sound was first used to gauge uterine cavity depth and then the Hegar dilators were used to dilate the cervix to receive the 7 [place] suction catheter. The 7 [place] suction catheter was used in all four quadrants and stuart tissue consistent with products of conception were suctioned from the fundal area with some bleeding following removal which was mild to moderate as expected. The curette was used to verify gritty surface in all four quadrants with no further products being removed by suction. The suction catheter was removed from the cervix and the single tooth tenaculum was removed. Sponge on a stick was used to wipe any blood or clot free from the vaginal delivery. The site of tenaculum was not bleeding. There was minimal bleeding following the procedure. The weighted speculum was removed and the patient was transferred to the recovery room in good condition. She will be discharged home when discharge criteria are met. After care instructions were discussed with the patient and her mother prior to the procedure and again reiterated to her mother following the procedure.
[2020-12-20 09:44] VITALS: BP 112/73; PULSE 68
== END 2020-12-20 09:30 | disposition home or self-care (01) ==
LOC: SDC 05:58
PROVIDERS: ATTEND Family Medicine
DX: O02.1 Missed abortion (principal)
CPT/HCPCS: 88305; J0690; J1100; J2250; J2405; J2704; J3010

== ENCOUNTER 2021-05-29 19:22 | Emergency (ER) | payer OTHER ==
--- NOTE | 2021-05-29 19:52 | ERPHSYRPT ---
- History of Present Illness Time Seen by Provider: 05/29/21 19:51 Source: patient Exam Limitations: no limitations Physician History: This is a 21-year-old white female who is approximately 12 weeks with an ultrasound verified single intrauterine fetus. Patient had sudden onset of left flank pain which radiated down into the left groin. She has no significant abdominal pain. She has no vaginal bleeding. Patient does have a history of spontaneous miscarriage at gestational age of 6 weeks in the past. Timing/Duration: today Severity: mild Modifying Factors: Improves With: nothing Associated Symptoms: denies symptoms Allergies/Adverse Reactions: venom-honey bee [bee venom (honey bee)] Allergy (Verified 05/29/21 20:59) Hx Tetanus, Diphtheria Vaccination/Date Given: Yes Hx Influenza Vaccination/Date Given: No Hx Pneumococcal Vaccination/Date Given: No Travel Risk - International Travel Have you traveled outside of the country in past 3 weeks: No - Coronavirus Screening Are you exhibiting any of the following symptoms?: No Close contact with a COVID-19 positive Pt in past 14-21 Days: No - Review of Systems Constitutional: No Symptoms Eyes: No Symptoms Ears, Nose, & Throat: No Symptoms Respiratory: No Symptoms Cardiac: No Symptoms Abdominal/Gastrointestinal: No Symptoms Genitourinary Symptoms: Flank Pain (Left) Musculoskeletal: No Symptoms Skin: No Symptoms Neurological: No Symptoms Psychological: No Symptoms Endocrine: No Symptoms Hematologic/Lymphatic: No Symptoms Immunological/Allergic: No Symptoms All Other Systems: Reviewed and Negative - Past Medical History Pertinent Past Medical History: Yes Neurological History: No Pertinent History ENT History: No Pertinent History Cardiac History: No Pertinent History Respiratory History: No Pertinent History Endocrine Medical History: No Pertinent History Musculoskeletal History: Fractures GI Medical History: No Pertinent History History: No Pertinent History Psycho-Social History: No Pertinent History Female Reproductive Disorders: No Pertinent History - Past Surgical History Past Surgical History: Yes Neuro Surgical History: No Pertinent History Cardiac: No Pertinent History Respiratory: No Pertinent History Gastrointestinal: Appendectomy Genitourinary: No Pertinent History Musculoskeletal: No Pertinent History Female Surgical History: No Pertinent History Other Surgical History: eye surgery - Social History Smoking Status: Former smoker How long have you smoked: 3 yrs Exposure to second hand smoke: Yes Drug Use: none Patient Lives Alone: No Significant Family History: no pertinent family hx - Nursing Vital Signs Nursing Vital Signs: Initial Vital Signs Temperature 97.4 F 05/29/21 20:14 Pulse Rate 80 05/29/21 20:14 Respiratory Rate 16 05/29/21 20:14 Blood Pressure 108/66 05/29/21 20:14 O2 Sat by Pulse Oximetry 98 05/29/21 20:14 Pain Scale Pain Intensity 8 - Physical Exam General Appearance: no apparent distress, alert, anxiety Eye Exam: PERRL/EOMI, eyes nml inspection Ears, Nose, Throat Exam: normal ENT inspection, moist mucous membranes Neck Exam: normal inspection, non-tender, supple, full range of motion Respiratory Exam: normal breath sounds, lungs clear, airway intact, No chest tenderness, No respiratory distress Cardiovascular Exam: regular rate/rhythm, normal heart sounds, normal peripheral pulses Gastrointestinal/Abdomen Exam: soft, normal bowel sounds, other (Patient has a 12-week level uterus. There is no audible heart tones at this time.), No tenderness, No guarding, No rebound Pelvic Exam: not done Rectal Exam: not done Extremity Exam: normal inspection, normal range of motion, pelvis stable Neurologic Exam: alert, oriented x 3, cooperative, devulcanizer charger II-XII nml as tested, normal mood/affect, nml cerebellar function, nml station & gait, sensation nml Skin Exam: normal color, warm, dry Lymphatic Exam: No adenopathy SpO2 Interpretation: normal O2 Delivery: Room Air - Course Nursing assessment & vital signs reviewed: Yes Ordered Tests: Active Orders 24 hr Category Date Time Status UA W/RFX UR CULTURE Stat Lab 05/29/21 21:17 Ordered - Progress Progress: unchanged Progress Note: 05/29/21 21:53 Medical decision making: This is a 21-year-old white female who presents with left flank pain with radiation in the left groin. She has no vaginal bleeding but she does have pain in the suprapubic area on left side. We are unable to hear heart tones but she is only 12 weeks gestation at this point. Patient was a little bit upset that we would not perform an ultrasound tonight. However, there is no vaginal bleeding and we already have verification there is a single intrauterine fetus and do not need to rule out any emergent issue. I did contact Dr. Newberry, the patient's automotive brake specialist and family practice doctor. We will order an OB ultrasound less than 14 weeks for tomorrow morning. Patient is scheduled for 9 AM. Patient also has a urinary tract infection and we will give her Keflex antibiotic now and send a prescription to her pharmacy for the remainder 7 days treatment. Counseled pt/family regarding: lab results, diagnosis, need for follow-up - Departure Departure Disposition: Home Clinical Impression: Pelvic pain affecting in first trimester, antepartum, UTI (urinary tract infection) Condition: Stable Critical Care Time: No Referrals: GHAZAL NEWBERRY MD [Primary Care Provider] - Additional Instructions: Drink plenty of fluids. Use Tylenol for pain control. Follow-up with radiology department at 9 AM tomorrow morning for ultrasound. Take your antibiotic medication as prescribed. Call Dr. Newberry's office tomorrow with couple hours after your ultrasound to obtain the results. Prescriptions: Cephalexin Mh 500 mg [Keflex 500 mg] 500 mg PO TID #21 cap
[2021-05-29 20:17] VITALS: O2SAT 98
[2021-05-29 21:46] LABS: Appearance SLIGHTLY CLOUDY (CLEAR); Bacteria RARE /HPF (NEGATIVE); Bilirubin NEGATIVE (NEGATIVE); Blood NEGATIVE Ery/ul (0-5); Epithelial Cells RARE /HPF (FEW); Glucose 50 mg/dL (NEGATIVE); Ketones TRACE (NEGATIVE); Leukocyte Esterase MODERATE (NEGATIVE); Mucus SLIGHT /HPF (NEGATIVE); Nitrite NEGATIVE (NEGATIVE); Protein,Urine Dip NEGATIVE (Negative); Specific Gravity 1.024 (1.005-1.025); Urobilinogen NEGATIVE mg/dL (0-1)
[2021-05-29] MEDS ORDERED: KEFLEX 500 MG ONE (22:12)
[2021-05-29] MEDS: KEFLEX 500 MG PO ONE (22:13)
[2021-05-29 22:18] VITALS: BP 86/54; PULSE 74
== END 2021-05-29 22:17 | disposition home or self-care (01) ==
LOC: ED 19:22
DX: O26.91 Pregnancy related conditions, unspecified, first trimester (principal); O23.41 Unspecified infection of urinary tract in pregnancy, first trimester; Z3A.12 12 weeks gestation of pregnancy
CPT/HCPCS: 81001; 87086; 99283; A9270-GY

== ENCOUNTER 2021-06-28 10:25 | Emergency (ER) | payer OTHER ==
--- NOTE | 2021-06-28 10:31 | ERPHSYRPT ---
- History of Present Illness Time Seen by Provider: 06/28/21 10:31 Source: patient Exam Limitations: no limitations Physician History: This is a 21-year-old white female who is 16 weeks and presents with 1 week history of cough and some dizziness. Patient was tested for Covid a week ago and it came back positive. Patient has not had a fever. She is just con cerned about the cough and more so about the dizziness. Patient has no abdominal pain. She has no chest pain. She has no flank pain. She denies dysuria or hematuria. Timing/Duration: week(s) (1) Cough Quality/Degree: mild, dry cough Possible Cause: no prior episodes Associated Symptoms: cough, dizziness Allergies/Adverse Reactions: venom-honey bee [bee venom (honey bee)] Allergy (Verified 06/28/21 10:39) Home Medications: Pnv No.133/Ferrous Fum/Folic [Gs Vitamins Tablet] 1 tab PO DAILY 06/28/21 [History] Hx Tetanus, Diphtheria Vaccination/Date Given: Yes Hx Influenza Vaccination/Date Given: No Hx Pneumococcal Vaccination/Date Given: No Travel Risk - International Travel Have you traveled outside of the country in past 3 weeks: No - Coronavirus Screening Are you exhibiting any of the following symptoms?: Yes Symptoms: Cough: New Onset Close contact with a COVID-19 positive Pt in past 14-21 Days: No - Vaccine Status Have you recieved a Covid-19 vaccination: No - Review of Systems Constitutional: No Symptoms Eyes: No Symptoms Ears, Nose, & Throat: No Symptoms Respiratory: Cough Cardiac: No Symptoms Abdominal/Gastrointestinal: No Symptoms Genitourinary Symptoms: No Symptoms Musculoskeletal: No Symptoms Skin: No Symptoms Neurological: Dizziness Psychological: No Symptoms Endocrine: No Symptoms Hematologic/Lymphatic: No Symptoms Immunological/Allergic: No Symptoms All Other Systems: Reviewed and Negative - Past Medical History Pertinent Past Medical History: Yes Neurological History: No Pertinent History ENT History: No Pertinent History Cardiac History: No Pertinent History Respiratory History: No Pertinent History Endocrine Medical History: No Pertinent History Musculoskeletal History: Fractures GI Medical History: No Pertinent History History: No Pertinent History Psycho-Social History: No Pertinent History Female Reproductive Disorders: No Pertinent History - Past Surgical History Past Surgical History: Yes Neuro Surgical History: No Pertinent History Cardiac: No Pertinent History Respiratory: No Pertinent History Gastrointestinal: Appendectomy Genitourinary: No Pertinent History Musculoskeletal: No Pertinent History Female Surgical History: No Pertinent History Other Surgical History: eye surgery - Social History Smoking Status: Former smoker How long have you smoked: 3 yrs Exposure to second hand smoke: Yes Drug Use: none Patient Lives Alone: No Significant Family History: no pertinent family hx - Nursing Vital Signs Nursing Vital Signs: Initial Vital Signs Temperature 97.8 F 06/28/21 10:33 Pulse Rate 85 06/28/21 10:33 Blood Pressure 127/70 06/28/21 10:33 O2 Sat by Pulse Oximetry 99 06/28/21 10:33 Pain Scale Pain Intensity 0 - Physical Exam General Appearance: no apparent distress, alert, anxiety Eye Exam: PERRL/EOMI, eyes nml inspection Ears, Nose, Throat Exam: normal ENT inspection, moist mucous membranes Neck Exam: normal inspection, non-tender, supple, full range of motion Respiratory Exam: normal breath sounds, lungs clear, airway intact, No chest tenderness, No respiratory distress Cardiovascular Exam: regular rate/rhythm, normal heart sounds, normal peripheral pulses Gastrointestinal/Abdomen Exam: soft, normal bowel sounds, No tenderness Pelvic Exam: not done Rectal Exam: not done Back Exam: normal inspection, normal range of motion, No CVA tenderness Extremity Exam: normal inspection, normal range of motion, pelvis stable Neurologic Exam: alert, oriented x 3, cooperative, residential substance abuse counselor II-XII nml as tested, normal mood/affect, nml cerebellar function, nml station & gait, sensation nml Skin Exam: normal color, warm, dry Lymphatic Exam: No adenopathy SpO2 Interpretation: normal O2 Delivery: Room Air - Course Nursing assessment & vital signs reviewed: Yes Ordered Tests: Active Orders 24 hr Category Date Time Status BMP Stat Lab 06/28/21 11:05 Completed CBC W DIFF Stat Lab 06/28/21 11:10 Completed INFLUENZA A+B MOI Stat Lab 06/28/21 11:05 Completed Manual Differential NC Stat Lab 06/28/21 11:10 Completed [place] Screen Stat Lab 06/28/21 11:05 Completed UA W/RFX UR CULTURE Stat Lab 06/28/21 11:44 Completed Medication Summary Discontinued Medications Generic Name Dose Route Start Last Admin Trade Name Freq PRN Reason Stop Dose Admin Potassium Chloride 10 meq 06/28/21 11:38 06/28/21 11:41 Klor Con 10 Meq PO 06/28/21 11:39 10 meq STAT ONE Administration Potassium Chloride Confirm 06/28/21 11:40 Klor Con 10 Meq Administered 06/28/21 11:41 Dose 10 meq PO .STK-MED ONE Lab/Rad Data: Laboratory Result Diagrams 06/28/21 11:10 06/28/21 11:05 Laboratory Results 06/28/21 06/28/21 06/28/21 Range/Units 11:44 11:10 11:05 WBC 11.3 H (4.0-10.5) K/mm3 RBC 4.40 (4.1-5.4) M/mm3 Hgb 12.4 (12.0-16.0) gm/dl Hct 37.9 (35-47) % MCV 86.1 (78-100) fl MCH 28.2 (26-32) pg MCHC 32.7 (32-36) g/dl RDW 13.8 (11.5-14.0) % Plt Count 283 (150-450) K/mm3 MPV 10.2 (7.5-11.0) fl Segmented Neutrophils 81 H (36.0-66.0) % Band Neutrophils 2 (0.0-2.0) % Lymphocytes (Manual) 13 L (24-44) % Monocytes (Manual) 2 (0.0-12.0) % Eosinophils (Manual) 2 (0.00-3.0) % Platelet Estimate NORMAL (NORMAL) RBC Morphology NORMAL Sodium (137-145) mmol/L Potassium (3.5-5.1) mmol/L Chloride (98-107) mmol/L Carbon Dioxide (22-30) mmol/L Anion Gap (5-15) MEQ/L BUN (7-17) mg/dL Creatinine (0.52-1.04) mg/dL Estimated GFR ML/MIN Glucose (74-106) mg/dL Calcium (8.4-10.2) mg/dL Urine Color YELLOW (YELLOW) Urine Appearance SLIGHTLY CLOUDY (CLEAR) Urine pH 6.0 (5-6) Ur Specific [place] 1.021 (1.005-1.025) Urine Protein NEGATIVE (Negative) Urine Ketones NEGATIVE (NEGATIVE) Urine Blood NEGATIVE (0-5) Ranjeet/ul Urine Nitrite NEGATIVE (NEGATIVE) Urine Bilirubin NEGATIVE (NEGATIVE) Urine Urobilinogen NEGATIVE (0-1) mg/dL Ur Leukocyte Esterase MODERATE (NEGATIVE) Urine WBC (Auto) 6-10 (0-5) /HPF Urine RBC (Auto) 0-2 (0-2) /HPF U Epithel Cells (Auto) NONE (FEW) /HPF Urine Bacteria (Auto) RARE (NEGATIVE) /HPF Urine Mucus (Auto) SLIGHT (NEGATIVE) /HPF Urine Culture Reflexed NO (NO) Urine Glucose 50 (NEGATIVE) mg/dL Monoscreen NEGATIVE (Negative) Influenza Type A Ag (NEGATIVE) Influenza Type B Ag (NEGATIVE) Group A Strep Antibody (NEGATIVE) 06/28/21 06/28/21 06/28/21 Range/Units 11:05 11:05 11:05 WBC (4.0-10.5) K/mm3 RBC (4.1-5.4) M/mm3 Hgb (12.0-16.0) gm/dl Hct (35-47) % MCV (78-100) fl MCH (26-32) pg MCHC (32-36) g/dl RDW (11.5-14.0) % Plt Count (150-450) K/mm3 MPV (7.5-11.0) fl Segmented Neutrophils (36.0-66.0) % Band Neutrophils (0.0-2.0) % Lymphocytes (Manual) (24-44) % Monocytes (Manual) (0.0-12.0) % Eosinophils (Manual) (0.00-3.0) % Platelet Estimate (NORMAL) RBC Morphology Sodium 137 (137-145) mmol/L Potassium 3.2 L (3.5-5.1) mmol/L Chloride 107 (98-107) mmol/L Carbon Dioxide 20 L (22-30) mmol/L Anion Gap 13.8 (5-15) MEQ/L BUN 7 (7-17) mg/dL Creatinine 0.48 L (0.52-1.04) mg/dL Estimated GFR > 60.0 ML/MIN Glucose 115 H (74-106) mg/dL Calcium 9.2 (8.4-10.2) mg/dL Urine Color (YELLOW) Urine Appearance (CLEAR) Urine pH (5-6) Ur Specific [place] (1.005-1.025) Urine Protein (Negative) Urine Ketones (NEGATIVE) Urine Blood (0-5) Ranjeet/ul Urine Nitrite (NEGATIVE) Urine Bilirubin (NEGATIVE) Urine Urobilinogen (0-1) mg/dL Ur Leukocyte Esterase (NEGATIVE) Urine WBC (Auto) (0-5) /HPF Urine RBC (Auto) (0-2) /HPF U Epithel Cells (Auto) (FEW) /HPF Urine Bacteria (Auto) (NEGATIVE) /HPF Urine Mucus (Auto) (NEGATIVE) /HPF Urine Culture Reflexed (NO) Urine Glucose (NEGATIVE) mg/dL Monoscreen (Negative) Influenza Type A Ag NEGATIVE (NEGATIVE) Influenza Type B Ag NEGATIVE (NEGATIVE) Group A Strep Antibody NEGATIVE (NEGATIVE) - Progress Progress: re-examined, unchanged Air Movement: good Blood Culture(s) Obtained: No Counseled pt/family regarding: lab results, diagnosis, need for follow-up - Departure Departure Disposition: Home Clinical Impression: UTI (urinary tract infection) during , Cough, Hypokalemia Condition: Stable Critical Care Time: No Referrals: GHAZAL NEWBERRY MD [Primary Care Provider] - Additional Instructions: Drink plenty of fluids. Take your medication as prescribed. Use [id number] antitussive agents such as Benadryl, Robitussin-DM. Continue to quarantine yourself per your instructions secondary to your COVID-19 infection diagnosis. Follow-up with your primary care physician/beverage specialist for further management Prescriptions: Cephalexin Mh 500 mg [Keflex 500 mg] 500 mg PO TID #21 cap
[2021-06-28 11:16] LABS: Hematocrit 37.9 % (35-47); Hemoglobin 12.4 gm/dl (12.0-16.0); Mean Cell Volume 86.1 fl (78-100); Mean Corpuscular Hemoglobin 28.2 pg (26-32); Mean Corpuscular Hgb Concent. 32.7 g/dl (32-36); Mean Platelet Volume 10.2 fl (7.5-11.0); Platelet Count 283 K/mm3 (150-450); Red Cell Distribution Width 13.8 % (11.5-14.0); White Blood Count 11.3 K/mm3 (4.0-10.5)
[2021-06-28 11:20] VITALS: BP 116/79; PULSE 90; O2SAT 98
[2021-06-28 11:27] LABS: ANION GAP 13.8 MEQ/L (5-15); BLOOD UREA NITROGEN 7 mg/dL (7-17); CHLORIDE 107 mmol/L (98-107); Calcium 9.2 mg/dL (8.4-10.2); Carbon Dioxide 20 mmol/L (22-30); Creatinine 1 0.48 mg/dL (0.52-1.04); EST GLOMERULAR FILTRATION RATE > 60.0 ML/MIN; Glucose 115 mg/dL (74-106); Potassium 3.2 mmol/L (3.5-5.1); SODIUM 137 mmol/L (137-145)
[2021-06-28 11:38] LABS: INFLUENZA A NEGATIVE (NEGATIVE); INFLUENZA B NEGATIVE (NEGATIVE)
[2021-06-28] MEDS ORDERED: Klor Con 10 MEQ PO ONE ×2 (11:38→11:40)
[2021-06-28 11:56] LABS: Appearance SLIGHTLY CLOUDY (CLEAR); Bacteria RARE /HPF (NEGATIVE); Bilirubin NEGATIVE (NEGATIVE); Blood NEGATIVE Ery/ul (0-5); Glucose 50 mg/dL (NEGATIVE); Ketones NEGATIVE (NEGATIVE); Leukocyte Esterase MODERATE (NEGATIVE); Mucus SLIGHT /HPF (NEGATIVE); Nitrite NEGATIVE (NEGATIVE); Protein,Urine Dip NEGATIVE (Negative); RBC 0-2 /HPF (0-2); Specific Gravity 1.021 (1.005-1.025); Urobilinogen NEGATIVE mg/dL (0-1)
[2021-06-28 11:59] LABS: BAND 2 % (0.0-2.0); Eosinophil 2 % (0.00-3.0); Lymphocytes 13 % (24-44); Monocyte 2 % (0.0-12.0); Neutrophils 81 % (36.0-66.0); Platelet Estimate NORMAL (NORMAL); Total Cells Counted 100
== END 2021-06-28 12:23 | disposition home or self-care (01) ==
LOC: ED 10:25
DX: O23.42 Unspecified infection of urinary tract in pregnancy, second trimester (principal); Z3A.16 16 weeks gestation of pregnancy; R05 Cough; R42 Dizziness and giddiness; E87.6 Hypokalemia; Z86.16 Personal history of COVID-19
CPT/HCPCS: 36415; 80048; 81001; 85025; 86308; 87400; 87651; 99283; A9270-GY

== ENCOUNTER 2021-07-25 11:39 | Observation (INO) | payer OTHER ==
[2021-07-25 12:17] VITALS: BP 113/59; PULSE 90
--- NOTE | 2021-07-25 12:57 | XRAY ---
Indication: Bleeding. 2-dimensional OB ultrasound performed. Comparison: July 11, 2021. Again single viable intrauterine in cephalic presentation. heart rate 154 bpm. Anterior placenta without abruption/previa. Cervical length is 4.4 cm. BPD measures 4.64 cm corresponding to 20 weeks 0 days. HC measures 17.40 cm corresponding to 20 weeks 0 days. AC measures 14.66 cm corresponding to 20 weeks 0 days. FL measures 3.21 cm corresponding to 20 weeks 0 days. ARISTIDES is 12.2 cm. Impression: Again single viable intrauterine with mean gestational age 20 weeks 0 day. Normal progression of . No new/acute findings.
== END 2021-07-25 12:55 | disposition home or self-care (01) ==
LOC: OB 11:39
PROVIDERS: ADMIT Family Medicine; ATTEND Family Medicine
DX: Z34.82 Encounter for supervision of other normal pregnancy, second trimester (principal); Z3A.20 20 weeks gestation of pregnancy
CPT/HCPCS: 76816; G0378

== ENCOUNTER 2021-08-20 12:15 | Emergency (ER) | payer OTHER ==
[2013-07-11 13:19] VITALS: BP 109/60
[2021-08-20] MEDS ORDERED: Sodium Chloride 0.9% 1000 ML 1,000 ML IV STA (12:47)
[2021-08-20] MEDS ORDERED: Sodium Chloride 0.9% 1000 ML 1,000 ML ONE (13:05)
[2021-08-20 13:09] LABS: Hematocrit 35.3 % (35-47); Hemoglobin 11.3 gm/dl (12.0-16.0); Mean Cell Volume 88.9 fl (78-100); Mean Corpuscular Hemoglobin 28.5 pg (26-32); Mean Platelet Volume 9.8 fl (7.5-11.0); Platelet Count 317 K/mm3 (150-450); Red Blood Count 3.97 M/mm3 (4.1-5.4); Red Cell Distribution Width 13.5 % (11.5-14.0); White Blood Count 14.1 K/mm3 (4.0-10.5)
[2021-08-20 13:15] LABS: Appearance SLIGHTLY CLOUDY (CLEAR); Bilirubin NEGATIVE (NEGATIVE); Blood NEGATIVE Ery/ul (0-5); Epithelial Cells RARE /HPF (FEW); Glucose >=500 mg/dL (NEGATIVE); Ketones NEGATIVE (NEGATIVE); Leukocyte Esterase NEGATIVE (NEGATIVE); Mucus SLIGHT /HPF (NEGATIVE); Nitrite NEGATIVE (NEGATIVE); Protein,Urine Dip NEGATIVE (Negative); Specific Gravity 1.021 (1.005-1.025); Urobilinogen NEGATIVE mg/dL (0-1)
--- NOTE | 2021-08-20 13:21 | ERPHSYRPT ---
- History of Present Illness Time Seen by Provider: 08/20/21 12:18 Source: patient Exam Limitations: no limitations Patient Subjective Stated Complaint: pt here for dizziness for 2 days, she states the room feels like its spinning, she is 23 wks and 5 days , gravid 2 para 0 Triage Nursing Assessment: pt alert, resp easy, skin w/d/p, pt walked in drinking coke, denies contractions or vaginal bleeding Physician History: 21 years old 2 para 0 at 23 weeks gestation presented in the ER with feeling dizzy lightheaded since morning. Patient reports feeling lightheaded with ambulation and better with resting. Some room spinning sensation at times. Denies any chest pain palpitations or shortness of breath. No abdominal pain/pelvic cramping, vaginal bleeding or discharge. Denies any urinary symptom s. Reports having similar symptoms few weeks ago and was having hypokalemia. Timing/Duration: today, sudden, improved Severity: moderate Associated Symptoms: nausea, weakness, No vomiting, No abdominal pain, No shortness of breath, No cough, No chills, No chest pain, No fever, No loss of appetite, No malaise Allergies/Adverse Reactions: venom-honey bee [bee venom (honey bee)] Allergy (Verified 08/20/21 12:20) Home Medications: Pnv No.133/Ferrous Fum/Folic [Gs Vitamins Tablet] 1 tab PO DAILY 06/28/21 [History] Hx Tetanus, Diphtheria Vaccination/Date Given: Yes Hx Influenza Vaccination/Date Given: No Hx Pneumococcal Vaccination/Date Given: No Immunizations Up to Date: Yes Travel Risk - International Travel Have you traveled outside of the country in past 3 weeks: No - Coronavirus Screening Close contact with a COVID-19 positive Pt in past 14-21 Days: No - Vaccine Status Have you recieved a Covid-19 vaccination: No - Review of Systems Constitutional: Fatigue, Weakness Eyes: No Symptoms Ears, Nose, & Throat: No Symptoms Respiratory: No Symptoms Cardiac: No Symptoms Abdominal/Gastrointestinal: Nausea Genitourinary Symptoms: No Symptoms Musculoskeletal: No Symptoms Skin: No Symptoms Neurological: No Symptoms Psychological: No Symptoms Endocrine: No Symptoms Hematologic/Lymphatic: No Symptoms Immunological/Allergic: No Symptoms - Past Medical History Pertinent Past Medical History: Yes Neurological History: No Pertinent History ENT History: No Pertinent History Cardiac History: No Pertinent History Respiratory History: No Pertinent History Endocrine Medical History: No Pertinent History Musculoskeletal History: Fractures GI Medical History: No Pertinent History History: No Pertinent History Psycho-Social History: No Pertinent History Female Reproductive Disorders: No Pertinent History - Past Surgical History Past Surgical History: Yes Neuro Surgical History: No Pertinent History Cardiac: No Pertinent History Respiratory: No Pertinent History Gastrointestinal: Appendectomy Genitourinary: No Pertinent History Musculoskeletal: No Pertinent History Female Surgical History: No Pertinent History Other Surgical History: eye surgery - Social History Smoking Status: Former smoker How long have you smoked: 3 yrs Exposure to second hand smoke: Yes Drug Use: none Patient Lives Alone: Yes Significant Family History: no pertinent family hx - Female History Hx Last Menstrual Period: unsure Hx Now: Yes Expected Date of Delivery: 12/12/21 - Nursing Vital Signs Nursing Vital Signs: Initial Vital Signs Temperature 98.1 F 08/20/21 12:24 Pulse Rate 104 H 08/20/21 12:24 Respiratory Rate 18 08/20/21 12:24 Blood Pressure 117/72 08/20/21 12:24 O2 Sat by Pulse Oximetry 99 08/20/21 12:24 Pain Scale Pain Intensity 0 - Physical Exam General Appearance: no apparent distress, alert, anxiety Eye Exam: PERRL/EOMI, eyes nml inspection Ears, Nose, Throat Exam: normal ENT inspection, TMs normal, pharynx normal, moist mucous membranes Neck Exam: normal inspection, non-tender, supple, full range of motion Respiratory Exam: normal breath sounds, lungs clear Cardiovascular Exam: regular rate/rhythm, normal heart sounds Gastrointestinal/Abdomen Exam: soft, normal bowel sounds, other (Gravid uterus), No tenderness Back Exam: normal inspection, normal range of motion Neurologic Exam: alert, oriented x 3, cooperative, um nurse II-XII nml as tested Skin Exam: normal color SpO2 Interpretation: normal SpO2: 99 O2 Delivery: Room Air Ordered Tests: Active Orders 24 hr Category Date Time Status Heart Tones-ED STAT Care 08/20/21 12:53 Active IV Insertion STAT Care 08/20/21 12:47 Active CBC W DIFF Stat Lab 08/20/21 13:08 Completed CMP Stat Lab 08/20/21 13:08 Completed MAGNESIUM Stat Lab 08/20/21 13:08 Completed Manual Differential NC Stat Lab 08/20/21 13:08 Completed UA W/RFX UR CULTURE Stat Lab 08/20/21 13:09 Completed Medication Summary Discontinued Medications Generic Name Dose Route Start Last Admin Trade Name [place] PRN Reason Stop Dose Admin Sodium Chloride 1,000 mls @ 999 mls/hr 08/20/21 12:47 08/20/21 14:19 Sodium Chloride 0.9% 1000 Ml IV 08/20/21 13:47 Infused .Q1H1M STA Infusion Sodium Chloride Confirm 08/20/21 13:05 Sodium Chloride 0.9% 1000 Ml Administered 08/20/21 13:06 Dose 1,000 mls @ ud .ROUTE .STK-MED ONE Potassium Bicarbonate 50 meq 08/20/21 13:49 08/20/21 13:55 Potassium Bicarbonate 25 Meq Tab PO 08/20/21 13:50 50 meq STAT ONE Administration Potassium Bicarbonate Confirm 08/20/21 13:54 Potassium Bicarbonate 25 Meq Tab Administered 08/20/21 13:55 Dose 25 meq .ROUTE .STK-MED ONE Lab/Rad Data: Laboratory Result Diagrams 08/20/21 13:08 08/20/21 13:08 Laboratory Results 08/20/21 08/20/21 08/20/21 Range/Units 13:09 13:08 13:08 WBC 14.1 H (4.0-10.5) K/mm3 RBC 3.97 L (4.1-5.4) M/mm3 Hgb 11.3 L (12.0-16.0) gm/dl Hct 35.3 (35-47) % MCV 88.9 (78-100) fl MCH 28.5 (26-32) pg MCHC 32.0 (32-36) g/dl RDW 13.5 (11.5-14.0) % Plt Count 317 (150-450) K/mm3 MPV 9.8 (7.5-11.0) fl Segmented Neutrophils 87 H (36.0-66.0) % Band Neutrophils 1 (0.0-2.0) % Lymphocytes (Manual) 6 L (24-44) % Monocytes (Manual) 4 (0.0-12.0) % Eosinophils (Manual) 2 (0.00-3.0) % Toxic Granulation 1+ Platelet Estimate NORMAL (NORMAL) RBC Morphology NORMAL Sodium 137 (137-145) mmol/L Potassium 3.2 L (3.5-5.1) mmol/L Chloride 109 H (98-107) mmol/L Carbon Dioxide 19 L (22-30) mmol/L Anion Gap 11.7 (5-15) MEQ/L BUN 3 L (7-17) mg/dL Creatinine 0.48 L (0.52-1.04) mg/dL Estimated GFR > 60.0 ML/MIN Glucose 110 H (74-106) mg/dL Calcium 9.0 (8.4-10.2) mg/dL Magnesium 2.0 (1.6-2.3) mg/dL Total Bilirubin 0.20 (0.2-1.3) mg/dL AST 22 (14-36) U/L ALT 13 (0-35) U/L Alkaline Phosphatase 68 (38-126) U/L Serum Total Protein 6.2 L (6.3-8.2) g/dL Albumin 3.4 L (3.5-5.0) g/dL Urine Color YELLOW (YELLOW) Urine Appearance SLIGHTLY CLOUDY (CLEAR) Urine pH 6.0 (5-6) Ur Specific [place] 1.021 (1.005-1.025) Urine Protein NEGATIVE (Negative) Urine Ketones NEGATIVE (NEGATIVE) Urine Blood NEGATIVE (0-5) Ranjeet/ul Urine Nitrite NEGATIVE (NEGATIVE) Urine Bilirubin NEGATIVE (NEGATIVE) Urine Urobilinogen NEGATIVE (0-1) mg/dL Ur Leukocyte Esterase NEGATIVE (NEGATIVE) Urine WBC (Auto) NONE (0-5) /HPF Urine RBC (Auto) NONE (0-2) /HPF U Epithel Cells (Auto) RARE (FEW) /HPF Urine Bacteria (Auto) NONE (NEGATIVE) /HPF Urine Mucus (Auto) SLIGHT (NEGATIVE) /HPF Urine Culture Reflexed NO (NO) Urine Glucose >=500 (NEGATIVE) mg/dL - Progress Progress: improved Progress Note: 08/20/21 14:41 21 years old at 23 weeks gestation is evaluated fracture dizziness/l ightheadedness with negative neuro exam. No abdominal cramping or tenderness/vaginal bleeding/discharge. heart tones 150s. Given fluids bolus, on reevaluation feeling better. No more dizzy lightheaded. Negative orthostatics. Work-up showed mild hypokalemia/dehydration. Given oral potass ium replacement. Patient is asymptomatic on reevaluation. Do not think she needs any other work-up and is stable for discharge with outpatient follow-up. Discussed signs symptoms of worsening needing return to ER which she seems understanding. Counseled pt/family regarding: lab results, diagnosis, need for follow-up - Departure Departure Disposition: Home Clinical Impression: Dizziness, nonspecific, Dehydration, Hypokalemia Qualifiers: Weeks of gestation: 24 weeks Qualified Code(s): Z3A.24 - 24 weeks gestation of Condition: Stable Critical Care Time: No Referrals: GHAZAL NEWBERRY MD [Primary Care Provider] - Follow up/PCP as directed (Call tomorrow for reevaluation) Instructions: Dizziness, Nonvertigo, (DC), Hypokalemia (DC) Additional Instructions: Keep yourself well-hydrated with plenty of fluids. Follow-up with primary care physician/OB for reevaluation in 1 to 2 days. Return to ER for worsening dizziness/lightheadedness or if develop abdominal cramping/pain/vaginal bleeding discharge etc.
[2021-08-20 13:25] LABS: ALBUMIN 3.4 g/dL (3.5-5.0); ALKALINE PHOSPHATASE 68 U/L (38-126); ANION GAP 11.7 MEQ/L (5-15); BLOOD UREA NITROGEN 3 mg/dL (7-17); CHLORIDE 109 mmol/L (98-107); Carbon Dioxide 19 mmol/L (22-30); Creatinine 1 0.48 mg/dL (0.52-1.04); EST GLOMERULAR FILTRATION RATE > 60.0 ML/MIN; Glucose 110 mg/dL (74-106); Potassium 3.2 mmol/L (3.5-5.1); SGOT/AST 22 U/L (14-36); SGPT/ALT 13 U/L (0-35); SODIUM 137 mmol/L (137-145); Total Protein 6.2 g/dL (6.3-8.2)
[2021-08-20 13:32] LABS: BAND 1 % (0.0-2.0); Eosinophil 2 % (0.00-3.0); Lymphocytes 6 % (24-44); Monocyte 4 % (0.0-12.0); Neutrophils 87 % (36.0-66.0); Total Cells Counted 100
[2021-08-20 13:33] LABS: Platelet Estimate NORMAL (NORMAL); Toxic Granulation 1+
[2021-08-20] MEDS ORDERED: K-LYTE 25 MEQ PO ONE (13:49)
[2021-08-20] MEDS ORDERED: K-LYTE 25 MEQ ONE (13:54)
== END 2021-08-20 14:59 | disposition home or self-care (01) ==
LOC: ED 12:15
DX: R42 Dizziness and giddiness (principal); E86.0 Dehydration; E87.6 Hypokalemia; R11.0 Nausea; R53.1 Weakness; Z33.1 Pregnant state, incidental; Z3A.23 23 weeks gestation of pregnancy
CPT/HCPCS: 36000; 36415; 80053; 81001; 83735; 85025; 99284; A9270-GY

== ENCOUNTER 2021-08-28 14:36 | Observation (INO) | payer OTHER ==
[2021-08-28 15:20] LABS: Appearance SLIGHTLY CLOUDY (CLEAR); Bacteria RARE /HPF (NEGATIVE); Bilirubin NEGATIVE (NEGATIVE); Blood NEGATIVE Ery/ul (0-5); Epithelial Cells RARE /HPF (FEW); Glucose >=500 mg/dL (NEGATIVE); Ketones NEGATIVE (NEGATIVE); Leukocyte Esterase NEGATIVE (NEGATIVE); Mucus SLIGHT /HPF (NEGATIVE); Nitrite NEGATIVE (NEGATIVE); Protein,Urine Dip NEGATIVE (Negative); Specific Gravity 1.018 (1.005-1.025); Urobilinogen NEGATIVE mg/dL (0-1)
[2021-08-28 15:31] LABS: Amphetamine,Urine NEGATIVE (NEGATIVE); Barbiturate,Urine NEGATIVE (NEGATIVE); Benzodiazepine,Urine NEGATIVE (NEGATIVE); Cocaine,Urine NEGATIVE (NEGATIVE); Methadone,Urine NEGATIVE (NEGATIVE); Opiate,Urine NEGATIVE (NEGATIVE); PCP,Urine NEGATIVE (NEGATIVE); THC,Urine NEGATIVE (NEGATIVE)
[2021-08-28 17:13] VITALS: BP 117/58; PULSE 100
== END 2021-08-28 16:56 | disposition home or self-care (01) ==
LOC: OB 14:36
PROVIDERS: ADMIT Family Medicine; ATTEND Family Medicine
DX: Z34.82 Encounter for supervision of other normal pregnancy, second trimester (principal); Z3A.25 25 weeks gestation of pregnancy
CPT/HCPCS: 36415; 80307; 81001; 82947; 84112; G0378

== ENCOUNTER 2021-08-30 18:54 | Observation (INO) | payer OTHER ==
[2021-08-30 19:36] LABS: Appearance CLEAR (CLEAR); Bilirubin NEGATIVE (NEGATIVE); Blood NEGATIVE Ery/ul (0-5); Epithelial Cells RARE /HPF (FEW); Glucose NEGATIVE (NEGATIVE); Hyaline Casts 0-2 /LPF (0-2); Ketones SMALL (NEGATIVE); Leukocyte Esterase NEGATIVE (NEGATIVE); Nitrite NEGATIVE (NEGATIVE); Protein,Urine Dip NEGATIVE (Negative); Specific Gravity 1.006 (1.005-1.025); Urobilinogen NEGATIVE mg/dL (0-1)
[2021-08-30 19:40] LABS: Amphetamine,Urine NEGATIVE (NEGATIVE); Barbiturate,Urine NEGATIVE (NEGATIVE); Benzodiazepine,Urine NEGATIVE (NEGATIVE); Cocaine,Urine NEGATIVE (NEGATIVE); Methadone,Urine NEGATIVE (NEGATIVE); Opiate,Urine NEGATIVE (NEGATIVE); PCP,Urine NEGATIVE (NEGATIVE); THC,Urine NEGATIVE (NEGATIVE)
[2021-08-30 20:01] VITALS: O2SAT 98
[2021-08-30 20:58] VITALS: BP 114/62; PULSE 81
== END 2021-08-30 21:15 | disposition home or self-care (01) ==
LOC: OB 18:54
PROVIDERS: ADMIT Family Medicine; ATTEND Family Medicine
DX: Z34.02 Encounter for supervision of normal first pregnancy, second trimester (principal); Z3A.25 25 weeks gestation of pregnancy
CPT/HCPCS: 80307; 81001; 82947; G0378

== ENCOUNTER 2021-10-16 08:13 | Observation (INO) | payer OTHER ==
[2021-10-16 08:45] LABS: Appearance SLIGHTLY CLOUDY (CLEAR); Bilirubin NEGATIVE (NEGATIVE); Blood NEGATIVE Ery/ul (0-5); Epithelial Cells RARE /HPF (FEW); Glucose 150 mg/dL (NEGATIVE); Ketones NEGATIVE (NEGATIVE); Leukocyte Esterase NEGATIVE (NEGATIVE); Mucus SLIGHT /HPF (NEGATIVE); Nitrite NEGATIVE (NEGATIVE); Protein,Urine Dip NEGATIVE (Negative); RBC 0-2 /HPF (0-2); Specific Gravity 1.016 (1.005-1.025); Urobilinogen NEGATIVE mg/dL (0-1)
[2021-10-16 08:47] LABS: Bacteria FEW /HPF (NEGATIVE)
[2021-10-16 08:52] VITALS: BP 127/65; PULSE 100
== END 2021-10-16 09:15 | disposition home or self-care (01) ==
LOC: OB 08:13
PROVIDERS: ADMIT Family Medicine; ATTEND Family Medicine
DX: Z34.83 Encounter for supervision of other normal pregnancy, third trimester (principal); Z3A.31 31 weeks gestation of pregnancy
CPT/HCPCS: 81001; G0378

== ENCOUNTER 2021-10-23 09:04 | Emergency (ER) | payer OTHER ==
[2021-10-23 09:17] VITALS: O2SAT 98
[2021-10-23] MEDS ORDERED: Zofran 4 MG/2 ML VIAL IV ONE (09:27)
[2021-10-23] MEDS ORDERED: Sodium Chloride 0.9% 1000 ML 1,000 ML IV STA (09:30)
[2021-10-23] MEDS ORDERED: Sodium Chloride 0.9% 1000 ML 1,000 ML ONE (09:31)
[2021-10-23] MEDS ORDERED: Zofran 4 MG/2 ML VIAL ONE (09:31)
--- NOTE | 2021-10-23 09:40 | ERPHSYRPT ---
- History of Present Illness Time Seen by Provider: 10/23/21 09:15 Source: patient Exam Limitations: no limitations Patient Subjective Stated Complaint: Vomiting Triage Nursing Assessment: Patient ambulated back to ED and transferred self to bed. Patient A+O X3. Patient's skin pink, warm and dry. Patient complains of N/V, cough, sob, headache, bodyache and fatigue that stated yesterday afternoon. Patient is currently 33 weeks . Patient states her grandmother and brother are COVID positive. Patient also complains of mid back pain 7/10. Physician History: Patient is a 21-year-old female currently 33 weeks presents to our ED with COVID-like symptoms. Patient complains of a nausea vomiting cough sh ortness of breath headache body aches fatigue x1 day. Patient also has mid back pain. Symptoms are constant. Symptoms are moderate in intensity. No specific worsening improving factors. Patient is otherwise healthy. She denies any related complaints. No pelvic or abdominal cramping. No vaginal discharge. No trauma. No fever. Patient is otherwise healthy. She voices no other complaints or concerns at this time. Patient has an appointment scheduled with her primary care provider. Patient was advised to come to our ED for evaluation. Patient admits to COVID exposure. Has not been formally tested positive. Timing/Duration: yesterday Severity: moderate Modifying Factors: Improves With: nothing Associated Symptoms: nausea, vomiting, shortness of breath, cough, No chest pain, No fever Allergies/Adverse Reactions: venom-honey bee [bee venom (honey bee)] Allergy (Verified 10/23/21 09:10) Home Medications: Pnv No.133/Ferrous Fum/Folic [Gs Vitamins Tablet] 1 tab PO DAILY 06/28/21 [History] Hx Tetanus, Diphtheria Vaccination/Date Given: Yes Hx Influenza Vaccination/Date Given: No Hx Pneumococcal Vaccination/Date Given: No Immunizations Up to Date: Yes Travel Risk - International Travel Have you traveled outside of the country in past 3 weeks: No - Coronavirus Screening Are you exhibiting any of the following symptoms?: Yes Symptoms: Cough: New Onset, Shortness of Breath, Vomiting/Diarrhea, Headaches/Body Aches/Fatigue - Vaccine Status Have you recieved a Covid-19 vaccination: No - Review of Systems Constitutional: No Symptoms, No Fever, No Chills Eyes: No Symptoms Ears, Nose, & Throat: No Symptoms Respiratory: No Symptoms, No Cough, No Dyspnea Cardiac: No Symptoms, No Chest Pain, No Edema, No Syncope Abdominal/Gastrointestinal: No Symptoms, No Abdominal Pain, No Nausea, No Vomiting, No Diarrhea Genitourinary Symptoms: No Symptoms, No Dysuria Musculoskeletal: No Symptoms, No Back Pain, No Neck Pain Skin: No Symptoms, No Rash Neurological: No Symptoms, No Dizziness, No Focal Weakness, No Sensory Changes Psychological: No Symptoms Endocrine: No Symptoms Hematologic/Lymphatic: No Symptoms Immunological/Allergic: No Symptoms All Other Systems: Reviewed and Negative - Past Medical History Pertinent Past Medical History: Yes Neurological History: No Pertinent History ENT History: No Pertinent History Cardiac History: No Pertinent History Respiratory History: No Pertinent History Endocrine Medical History: No Pertinent History Musculoskeletal History: Fractures GI Medical History: No Pertinent History History: No Pertinent History Psycho-Social History: No Pertinent History Female Reproductive Disorders: No Pertinent History - Past Surgical History Past Surgical History: Yes Neuro Surgical History: No Pertinent History Cardiac: No Pertinent History Respiratory: No Pertinent History Gastrointestinal: Appendectomy Genitourinary: No Pertinent History Musculoskeletal: No Pertinent History Female Surgical History: No Pertinent History Other Surgical History: eye surgery - Social History Smoking Status: Former smoker How long have you smoked: 3 yrs Exposure to second hand smoke: No Drug Use: none Patient Lives Alone: No Significant Family History: no pertinent family hx - Female History Hx Last Menstrual Period: unknown Hx Now: Yes Expected Date of Delivery: 12/12/21 - Nursing Vital Signs Nursing Vital Signs: Initial Vital Signs Temperature 98.2 F 10/23/21 09:11 Pulse Rate 129 H 10/23/21 09:11 Respiratory Rate 18 10/23/21 09:11 Blood Pressure 124/75 10/23/21 09:11 O2 Sat by Pulse Oximetry 98 10/23/21 09:11 Pain Scale Pain Intensity 0 - Physical Exam General Appearance: no apparent distress, alert Eye Exam: PERRL/EOMI, eyes nml inspection Ears, Nose, Throat Exam: normal ENT inspection, TMs normal, pharynx normal, moist mucous membranes Neck Exam: normal inspection, non-tender, supple, full range of motion Respiratory Exam: normal breath sounds, lungs clear, No respiratory distress Cardiovascular Exam: regular rate/rhythm, normal heart sounds, normal peripheral pulses Gastrointestinal/Abdomen Exam: soft, normal bowel sounds, other, No tenderness, No mass Back Exam: normal inspection, normal range of motion, No CVA tenderness, No vertebral tenderness Extremity Exam: normal inspection, normal range of motion, pelvis stable Neurologic Exam: alert, oriented x 3, cooperative, normal mood/affect, nml cere bellar function, nml station & gait, sensation nml, No motor deficits Skin Exam: normal color, warm, dry, No rash Lymphatic Exam: No adenopathy SpO2 Interpretation: normal SpO2: 98 O2 Delivery: Room Air - Course Nursing assessment & vital signs reviewed: Yes - Radiology Exams Chest X-ray Interpretation: Teleradiologist Report (Portable chest again demonstrates normal heart lungs and bony thorax) Ordered Tests: Active Orders 24 hr Category Date Time Status CHEST 1 VIEW (PORTABLE) Stat Exams 10/23/21 09:35 Completed CBC W DIFF Stat Lab 10/23/21 09:44 Completed CMP Stat Lab 10/23/21 09:44 Completed Manual Differential NC Stat Lab 10/23/21 09:44 Completed UA W/RFX UR CULTURE Stat Lab 10/23/21 09:26 Completed Medication Summary Discontinued Medications Generic Name Dose Route Start Last Admin Trade Name Linwood PRN Reason Stop Dose Admin Acetaminophen 975 mg 10/23/21 09:42 10/23/21 10:02 Acetaminophen 325 Mg Tablet PO 10/23/21 09:43 975 mg STAT ONE Administration Acetaminophen Confirm 10/23/21 10:01 Acetaminophen 325 Mg Tablet Administered 10/23/21 10:02 Dose 975 mg .ROUTE .STK-MED ONE Sodium Chloride 1,000 mls @ 999 mls/hr 10/23/21 09:30 10/23/21 11:04 Sodium Chloride 0.9% 1000 Ml IV 10/23/21 10:30 Infused .Q1H1M STA Infusion Sodium Chloride Confirm 10/23/21 09:31 Sodium Chloride 0.9% 1000 Ml Administered 10/23/21 09:32 Dose 1,000 mls @ ud .ROUTE .STK-MED ONE Ondansetron HCl 4 mg 10/23/21 09:27 10/23/21 09:33 Ondansetron Hcl 4 Mg/2 Ml Vial IV 10/23/21 09:28 4 mg STAT ONE Administration Ondansetron HCl Confirm 10/23/21 09:31 Ondansetron Hcl 4 Mg/2 Ml Vial Administered 10/23/21 09:32 Dose 4 mg .ROUTE .STK-MED ONE Lab/Rad Data: Laboratory Result Diagrams 10/23/21 09:44 10/23/21 09:44 Laboratory Results 10/23/21 10/23/21 10/23/21 Range/Units 09:44 09:44 09:26 WBC 18.3 H (4.0-10.5) K/mm3 RBC 4.04 L (4.1-5.4) M/mm3 Hgb 11.5 L (12.0-16.0) gm/dl Hct 36.6 (35-47) % MCV 90.6 (78-100) fl MCH 28.5 (26-32) pg MCHC 31.4 L (32-36) g/dl RDW 14.4 H (11.5-14.0) % Plt Count 302 (150-450) K/mm3 MPV 9.8 (7.5-11.0) fl Sodium 133 L (137-145) mmol/L Potassium 3.8 (3.5-5.1) mmol/L Chloride 105 (98-107) mmol/L Carbon Dioxide 19 L (22-30) mmol/L Anion Gap 13.6 (5-15) MEQ/L BUN 3 L (7-17) mg/dL Creatinine 0.51 L (0.52-1.04) mg/dL Estimated GFR > 60.0 ML/MIN Glucose 74 (74-106) mg/dL Calcium 9.4 (8.4-10.2) mg/dL Total Bilirubin 0.60 (0.2-1.3) mg/dL AST 32 (14-36) U/L ALT 23 (0-35) U/L Alkaline Phosphatase 118 (38-126) U/L Serum Total Protein 6.2 L (6.3-8.2) g/dL Albumin 3.6 (3.5-5.0) g/dL Urine Color YELLOW (YELLOW) Urine Appearance CLOUDY (CLEAR) Urine pH 5.0 (5-6) Ur Specific Macy 1.023 (1.005-1.025) Urine Protein 30 (Negative) Urine Ketones MODERATE (NEGATIVE) Urine Blood NEGATIVE (0-5) Ranjeet/ul Urine Nitrite NEGATIVE (NEGATIVE) Urine Bilirubin NEGATIVE (NEGATIVE) Urine Urobilinogen NEGATIVE (0-1) mg/dL Ur Leukocyte Esterase NEGATIVE (NEGATIVE) Urine WBC (Auto) 3-5 (0-5) /HPF Urine RBC (Auto) 3-5 (0-2) /HPF U Epithel Cells (Auto) RARE (FEW) /HPF Urine Bacteria (Auto) RARE (NEGATIVE) /HPF Urine Mucus (Auto) SLIGHT (NEGATIVE) /HPF Urine Culture Reflexed NO (NO) Urine Glucose 150 (NEGATIVE) mg/dL - Progress Progress: improved Progress Note: Patient reassessed. He feels well. Patient tolerated p.o. No nausea or vomiting observed. Urinalysis negative for UTI. There is some proteinuria. Chest x-ray negative as well. No pneumonia. Blood work reveals a leukocytosis. Patient is afebrile. No source of infection. Leukocytosis is not uncommon in . Case discussed with Dr. Newberry. Patient was checked for COVID. Results pending. Per Dr. Newberry we will send patient home. Patient to quarantine. Patient understands importance of hydration. If COVID test comes back positive patient will likely receive monoclonal antibodies per Dr. Newberry. Plan of care discussed with patient. She states she is ready for discharge. She voices no other complaints or concerns at this time. Portions of this note were created with voice recognition technology. There may be grammatical, spelling, punctuation or sound alike errors 10/23/21 11:08 heart tones 146. The prescription for Zofran was forwarded to patient's pharmacy. 10/23/21 11:[address] Jerri Will see patient in: office Counseled pt/family regarding: lab results, diagnosis, need for follow-up, fela araya - Departure Departure Disposition: Home Clinical Impression: Nausea/vomiting in , Exposure to COVID-19 virus, Viral syndrome Condition: Stable Critical Care Time: No Referrals: GHAZAL NEWBERRY MD [Primary Care Provider] - Follow up/PCP as directed Additional Instructions: Discharge/Care Plan ANA RICARDO was seen on 10/23/21 in the Emergency Room. The patient was counseled regarding Diagnosis,Lab results, Imaging studies, need for follow up and when to return to the Emergency Room. Prescriptions given: Discharge Note I have spoken with the patient and/or caregivers. I have explained the patient's condition, diagnosis and treatment plan based on the information available to me at this time. I have answered the patient's and/or caregiver's questions and addressed any concerns. The patient and/or caregivers have as good understanding of the patient's diagnosis, condition and treatment plan as can be expected at this point. The vital signs have been stable. The patient's condition is stable and appropriate for discharge from the emergency department. The patient will pursue further outpatient evaluation with the primary care physician or other designated or consulting physician as outlined in the discharge instructions. The patient and/or caregivers are agreeable to this plan of care and follow-up instructions have been explained in detail. The patient and/or caregivers have received these instruction. The patient/and or caregivers are aware that any significant change in condition or worsening of symptoms should prompt an immediate return to this or the closest emergency department or call 911. Prescriptions: Ondansetron ODT 4 MG [Zofran Odt 4 mg] 4 mg PO Q6H PRN PRN #10 tablet PRN Reason: Vomiting
[2021-10-23] MEDS ORDERED: TYLENOL 325 MG PO ONE (09:42)
[2021-10-23 09:53] LABS: Hematocrit 36.6 % (35-47); Hemoglobin 11.5 gm/dl (12.0-16.0); Mean Cell Volume 90.6 fl (78-100); Mean Corpuscular Hemoglobin 28.5 pg (26-32); Mean Corpuscular Hgb Concent. 31.4 g/dl (32-36); Mean Platelet Volume 9.8 fl (7.5-11.0); Platelet Count 302 K/mm3 (150-450); Red Blood Count 4.04 M/mm3 (4.1-5.4); Red Cell Distribution Width 14.4 % (11.5-14.0); White Blood Count 18.3 K/mm3 (4.0-10.5)
[2021-10-23 09:58] LABS: Appearance CLOUDY (CLEAR); Bacteria RARE /HPF (NEGATIVE); Bilirubin NEGATIVE (NEGATIVE); Blood NEGATIVE Ery/ul (0-5); Epithelial Cells RARE /HPF (FEW); Glucose 150 mg/dL (NEGATIVE); Ketones MODERATE (NEGATIVE); Leukocyte Esterase NEGATIVE (NEGATIVE); Mucus SLIGHT /HPF (NEGATIVE); Nitrite NEGATIVE (NEGATIVE); Protein,Urine Dip 30 (Negative); Specific Gravity 1.023 (1.005-1.025); Urobilinogen NEGATIVE mg/dL (0-1)
[2021-10-23] MEDS ORDERED: TYLENOL 325 MG ONE (10:01)
--- NOTE | 2021-10-23 10:05 | XRAY ---
Indication: Cough. Pneumonia. Comparison: April 21, 2018. Portable chest again demonstrates normal heart, lungs, and bony thorax.
[2021-10-23 10:08] LABS: ALBUMIN 3.6 g/dL (3.5-5.0); ALKALINE PHOSPHATASE 118 U/L (38-126); ANION GAP 13.6 MEQ/L (5-15); BLOOD UREA NITROGEN 3 mg/dL (7-17); CHLORIDE 105 mmol/L (98-107); Calcium 9.4 mg/dL (8.4-10.2); Carbon Dioxide 19 mmol/L (22-30); Creatinine 1 0.51 mg/dL (0.52-1.04); EST GLOMERULAR FILTRATION RATE > 60.0 ML/MIN; Glucose 74 mg/dL (74-106); Potassium 3.8 mmol/L (3.5-5.1); SGOT/AST 32 U/L (14-36); SGPT/ALT 23 U/L (0-35); SODIUM 133 mmol/L (137-145); Total Protein 6.2 g/dL (6.3-8.2)
[2021-10-23 11:51] VITALS: BP 110/76; PULSE 76
[2021-10-23 12:59] LABS: Lymphocytes 5 % (24-44); Monocyte 6 % (0.0-12.0); Neutrophils 89 % (36.0-66.0); Platelet Estimate NORMAL (NORMAL); Total Cells Counted 100
== END 2021-10-23 11:34 | disposition home or self-care (01) ==
LOC: ED 09:04
DX: O21.2 Late vomiting of pregnancy (principal); Z20.822 Contact with and (suspected) exposure to COVID-19; O98.513 Other viral diseases complicating pregnancy, third trimester; B34.9 Viral infection, unspecified; Z3A.33 33 weeks gestation of pregnancy; R05.9 Cough, unspecified; R06.02 Shortness of breath; R51.9 Headache, unspecified; M79.10 Myalgia, unspecified site
CPT/HCPCS: 36000; 36415; 71045; 80053; 81001; 85025; 96360; 96374; 99284; U0003; J2405; A9270-GY

== ENCOUNTER 2021-10-26 11:11 | Observation (INO) | payer OTHER ==
[2021-10-26] MEDS ORDERED: BENADRYL 50 MG/ML IV PRN (12:00)
[2021-10-26] MEDS ORDERED: Pepcid 20 MG VIAL IV PRN (12:00)
[2021-10-26] MEDS ORDERED: VENTOLIN COMMON CANISTER IH PRN (12:00)
[2021-10-26] MEDS ORDERED: solu-CORTEF 100MG IV PRN (12:00)
[2021-10-26] MEDS ORDERED: Sodium Chloride 0.9% 1000 ML 1,000 ML IV PRN (12:00)
[2021-10-26] MEDS ORDERED: Zofran 4 MG/2 ML VIAL IV PRN (12:00)
[2021-10-26] MEDS ORDERED: Epipen 0.3 MG SQ PRN (12:00)
[2021-10-26] MEDS ORDERED: TYLENOL 325 MG PO PRN (12:00)
[2021-10-26] MEDS ORDERED: SOTROVIMAB (EUA) 500 MG in Sodium Chloride 0.9% 100 ML BAG 100 ML IV ONE (12:00)
[2021-10-26 12:23] VITALS: BP 114/66; PULSE 106; O2SAT 99
[2021-10-26] MEDS ORDERED: Lactated Ringers 1,000 ML IV ONE (16:11)
[2021-10-26] MEDS ORDERED: Celestone Soluspan 6MG/ML IM ONE (16:12)
[2021-10-26] MEDS ORDERED: BRETHINE 1 MG/ML SQ ONE (16:12)
== END 2021-10-26 14:10 | disposition home or self-care (01) ==
LOC: MS OUTPT 11:11 → MED SURG 11:54
PROVIDERS: ADMIT Family Medicine; ATTEND Family Medicine
DX: Z34.83 Encounter for supervision of other normal pregnancy, third trimester (principal); Z3A.33 33 weeks gestation of pregnancy
CPT/HCPCS: Q0247

== ENCOUNTER 2021-11-03 14:27 | Observation (INO) | payer OTHER ==
[2021-11-03 15:10] VITALS: BP 111/69; PULSE 110
== END 2021-11-03 15:29 | disposition home or self-care (01) ==
LOC: OB 14:27
PROVIDERS: ADMIT Family Medicine; ATTEND Family Medicine
DX: O98.513 Other viral diseases complicating pregnancy, third trimester (principal); Z3A.34 34 weeks gestation of pregnancy
CPT/HCPCS: 59025; G0378

== ENCOUNTER 2021-11-10 10:56 | Observation (INO) | payer OTHER ==
[2021-11-10 11:37] VITALS: BP 125/66; PULSE 108
== END 2021-11-10 12:20 | disposition home or self-care (01) ==
LOC: UNDOADMOB 10:56 → MED SURG 10:56 → UNDODISOB 12:20
PROVIDERS: ADMIT Family Medicine; ATTEND Family Medicine
DX: O98.513 Other viral diseases complicating pregnancy, third trimester (principal); Z3A.35 35 weeks gestation of pregnancy
CPT/HCPCS: 59025; G0378

== ENCOUNTER 2021-11-17 09:38 | Observation (INO) | payer OTHER | END 2021-11-17 10:30 | disposition home or self-care (01) | LOC: MED SURG 09:38 → UNDOADMOB 09:38 → UNDODISOB 10:30 | PROVIDERS: ADMIT Family Medicine; ATTEND Family Medicine | DX: O98.513 Other viral diseases complicating pregnancy, third trimester (principal); Z3A.36 36 weeks gestation of pregnancy | CPT/HCPCS: 59025; G0378 ==

== ENCOUNTER 2021-11-18 15:24 | Inpatient (IN) | payer OTHER ==
[2021-11-18] MEDS ORDERED: OMNIPEN 2 GM*** 2 G in Sodium Chloride 100ML MINI-BAG PLUS 100 ML IV ONE (16:46)
[2021-11-18] MEDS ORDERED: TYLENOL EXTRA STRENGTH 500 MG PO PRN (16:46)
[2021-11-18] MEDS ORDERED: Ephedrine Sulfate 50 MG/ML IV PRN (16:46)
[2021-11-18] MEDS ORDERED: FENTANYL 2 MCG-BUPIV 0.125%-NS 250 ML Epidur 250 ML EPIDURAL SCH (17:00)
[2021-11-18 17:29] LABS: Hematocrit 39.4 % (35-47); Hemoglobin 13.1 gm/dl (12.0-16.0); Mean Cell Volume 87.2 fl (78-100); Mean Corpuscular Hgb Concent. 33.2 g/dl (32-36); Platelet Count 379 K/mm3 (150-450); Red Blood Count 4.52 M/mm3 (4.1-5.4); Red Cell Distribution Width 14.1 % (11.5-14.0); White Blood Count 19.9 K/mm3 (4.0-10.5)
[2021-11-18] MEDS ORDERED: OMNIPEN 2 GM ONE (18:00)
[2021-11-18] MEDS ORDERED: Sodium Chloride 100ML MINI-BAG PLUS 100 ML IV ONE (18:01)
[2021-11-18 19:03] LABS: Amphetamine,Urine NEGATIVE (NEGATIVE); Barbiturate,Urine NEGATIVE (NEGATIVE); Benzodiazepine,Urine NEGATIVE (NEGATIVE); Cocaine,Urine NEGATIVE (NEGATIVE); Methadone,Urine NEGATIVE (NEGATIVE); Opiate,Urine NEGATIVE (NEGATIVE); PCP,Urine NEGATIVE (NEGATIVE); THC,Urine NEGATIVE (NEGATIVE)
[2021-11-18 20:27] LABS: ABO TYPING O; Antibody Screen NEGATIVE (NEGATIVE); RH TYPING NEGATIVE
[2021-11-18] MEDS ORDERED: BRETHINE 1 MG/ML SQ PRN (22:15)
[2021-11-18] MEDS ORDERED: PITOCIN 30 UNITS/ LR 500 ML 30 UNITS/500 ML PLAST..BAG IV SCH (22:30)
[2021-11-18] MEDS: Lactated Ringers 1,000 ML IV ONE (22:32)
[2021-11-18] MEDS ORDERED: Zofran 4 MG/2 ML VIAL IV PRN (22:51)
[2021-11-18 23:10] LABS: BAND 1 % (0.0-2.0); Lymphocytes 7 % (24-44); Monocyte 10 % (0.0-12.0); Neutrophils 82 % (36.0-66.0); Platelet Estimate NORMAL (NORMAL); Total Cells Counted 100
[2021-11-19] MEDS: Lactated Ringers 1,000 ML IV ONE (01:03)
[2021-11-19] MEDS ORDERED: Lactated Ringers 1,000 ML IV ONE (05:53)
[2021-11-19] MEDS: Lactated Ringers 1,000 ML IV SCH ×4 (06:12→20:37)
[2021-11-19] MEDS ORDERED: XYLOCAINE 1% HCL 20 ML MDV IJ PRN (08:00)
[2021-11-19] MEDS ORDERED: TUCKS TP PRN (10:50)
[2021-11-19] MEDS ORDERED: Dermoplast Spray TP PRN (10:50)
[2021-11-19] MEDS ORDERED: Adacel Vial IM ONE (10:50)
[2021-11-19] MEDS ORDERED: Mylicon 80MG PO PRN (10:50)
[2021-11-19] MEDS ORDERED: Dulcolax 10 MG SUPP PR PRN (10:50)
[2021-11-19] MEDS ORDERED: LANSINOH 40 GM TOP PRN (10:50)
[2021-11-19] MEDS ORDERED: Rhogam Plus 300 MCG IM ONE (10:50)
[2021-11-19] MEDS ORDERED: CORTISONE 1% CREAM TP PRN (10:50)
[2021-11-19] MEDS ORDERED: NORCO 5/325 MG PO PRN (10:50)
[2021-11-19] MEDS ORDERED: Ambien 10 MG PO PRN (10:50)
[2021-11-19] MEDS ORDERED: Anucort-HC SUPPOSITORY PR PRN (10:50)
[2021-11-19] MEDS ORDERED: Sensorcaine 0.25% 10 ML ONE (12:48)
[2021-11-19 18:15] VITALS: O2SAT 98
[2021-11-19] MEDS: MOTRIN 400 MG PO PRN (20:35)
[2021-11-19] MEDS: PITOCIN 30 UNITS/ LR 500 ML 30 UNITS/500 ML PLAST..BAG IV SCH (20:36)
[2021-11-19] MEDS: Colace 100 MG PO SCH (22:46)
[2021-11-19] MEDS: TYLENOL EXTRA STRENGTH 500 MG PO PRN (22:46)
[2021-11-20] MEDS: MOTRIN 400 MG PO PRN ×3 (02:36→22:24)
[2021-11-20 06:47] LABS: Hematocrit 37.6 % (35-47); Hemoglobin 12.2 gm/dl (12.0-16.0); Mean Cell Volume 88.7 fl (78-100); Mean Corpuscular Hemoglobin 28.8 pg (26-32); Mean Corpuscular Hgb Concent. 32.4 g/dl (32-36); Mean Platelet Volume 9.8 fl (7.5-11.0); Platelet Count 282 K/mm3 (150-450); Red Blood Count 4.24 M/mm3 (4.1-5.4); Red Cell Distribution Width 14.3 % (11.5-14.0); White Blood Count 19.7 K/mm3 (4.0-10.5)
[2021-11-20] MEDS: Colace 100 MG PO SCH ×2 (10:16→22:25)
[2021-11-20] MEDS: FERREX 150 PO SCH (10:16)
[2021-11-20 14:05] LABS: BAND 1 % (0.0-2.0); Lymphocytes 10 % (24-44); Monocyte 2 % (0.0-12.0); Neutrophils 87 % (36.0-66.0); Platelet Estimate NORMAL (NORMAL); Total Cells Counted 100; Toxic Granulation 1+
[2021-11-20] MEDS: TYLENOL EXTRA STRENGTH 500 MG PO PRN (14:59)
[2021-11-21 07:53] VITALS: BP 114/70; PULSE 75
[2021-11-21 08:27] LABS: HBsAg Screen Negative (Negative)
--- NOTE | 2021-11-21 09:23 | PCM.DS ---
Discharge Summary Date of Admission: 11/18/21 15:24 Admitting Physician: GHAZAL NEWBERRY Consults: Consults on Case 11/18/21 16:54 Notify Anesthesia Provider PRN 11/19/21 17:19 Navigation HS Primary Care Provider: GHAZAL NEWBERRY Allergies Allergies venom-honey bee [bee venom (honey bee)] Allergy (Verified 11/18/21 17:46) Hospital Summary - Hospital Course Hospital Course: Pt is 21 yo now who came in with [facility] at 36w 5d and delivered a 6lb 5oz baby girl vaginally (for full details, see Dr. Newberry' delivery note). Mom was initially but is now bottle feeding. Her bleeding is moderate. No dizziness when standing; her hgb was 13.2 on admission and after delivery was 12.2. Her WBC have been elevated; 19.9 initially and only decreased to 19.7 on recheck. She remains afebrile. Will discharge to home; if any s/sx of infection she is to contact Dr. Newberry or return to [facility]. F/u with Dr. Newberry in 1 week due to leukocytosis. - Vitals & Intake/Output Vital Signs: Vital Signs Temperature 97.7 F 11/21/21 07:15 Pulse Rate 75 11/21/21 07:15 Respiratory Rate 18 11/21/21 07:15 Blood Pressure 114/70 11/21/21 07:15 O2 Sat by Pulse Oximetry 98 11/20/21 08:00 Intake & Output: Intake & Output 11/18/21 11/19/21 11/20/21 11/21/21 11:59 11:59 11:59 11:59 Intake Total 2500 1700 Output Total 1150 800 Balance -1150 1700 1700 Weight 87.543 kg - Lab Result Diagrams: 11/20/21 05:00 Lab Results-Last 24 Hrs: Lab Results-Last 24 Hours 11/18/21 11/20/21 Range/Units 17:24 05:00 Segmented Neutrophils 87 H (36.0-66.0) % Band Neutrophils 1 (0.0-2.0) % Lymphocytes (Manual) 10 L (24-44) % Monocytes (Manual) 2 (0.0-12.0) % Toxic Granulation 1+ Platelet Estimate NORMAL (NORMAL) RBC Morphology NORMAL Hep Bs Antigen Negative (Negative) Discharge Exam General Appearance: no apparent distress, alert Neurologic Exam: oriented x 3, cooperative Eye Exam: eyes nml inspection Neck Exam: normal inspection, non-tender, full range of motion Respiratory Exam: normal breath sounds, lungs clear, No crackles/rales, No rhonc hi, No wheezing Cardiovascular Exam: regular rate/rhythm, normal heart sounds, No murmur Gastrointestinal/Abdomen Exam: soft, normal bowel sounds, other (fundus firm inferior to umbilicus), No tenderness, No distention, No guarding, No rebound Extremity Exam: normal inspection, No pedal edema, No swelling Skin Exam: normal color, warm, dry, No rash Final Diagnosis/Problem List - Final Discharge Diagnosis/Problem (1) Spontaneous vaginal delivery Current Visit: Yes Status: Acute Assessment & Plan: PPD #2 - doing great. Home today. Code(s): O80 - ENCOUNTER FOR FULL-TERM UNCOMPLICATED DELIVERY (2) Leukocytosis Current Visit: No Status: Acute Assessment & Plan: Will have her f/u with PCP in 1 week for recheck. Any s/sx infection, seek medical attention immediately. Code(s): D72.829 - ELEVATED WHITE BLOOD CELL COUNT, UNSPECIFIED - Discharge Disposition: Home, Self-Care Condition: Good Prescriptions: New Ibuprofen 600 mg PO TID PRN #35 tablet PRN Reason: Pain Continue Pnv No.133/Ferrous Fum/Folic [Gs Vitamins Tablet] 1 tab PO DAILY Ondansetron ODT 4 MG [Zofran Odt 4 mg] 4 mg PO Q6H PRN PRN #10 tablet PRN Reason: Vomiting Additional Instructions: If you have any temperature over 100, nausea/vomiting/diarrhea, increased abdom inal pain, change in vaginal discharge (increased discharge or increased yellow/green discharge), cough, sinus symptoms, increased heart rate (over 100), difficulty breathing/fast breathing, or any other worrisome symptoms, come see your doctor or go to ER [facility]. Follow up with: GHAZAL NEWBERRY MD [Primary Care Provider] -
[2021-11-21] MEDS: FERREX 150 PO SCH (10:55)
[2021-11-21] MEDS: Colace 100 MG PO SCH (10:55)
== END 2021-11-21 15:15 | disposition home or self-care (01) | DRG 807 ==
LOC: OBSVTOIN 15:24 → OB 15:24
PROVIDERS: ADMIT Family Medicine; ATTEND Family Medicine
PROC: 10E0XZZ Delivery of Products of Conception, External Approach (ICD-10-PCS; principal; 2021-11-19)
PROC: 0KQM0ZZ Repair Perineum Muscle, Open Approach (ICD-10-PCS; 2021-11-19)
DX: O70.1 Second degree perineal laceration during delivery (principal); Z37.0 Single live birth; Z3A.36 36 weeks gestation of pregnancy; D72.829 Elevated white blood cell count, unspecified
CPT/HCPCS: 36415; 59025; 80307; 81003; 84112; 85025; 85461; 86850; 86900; 86901; 87081; 87340; 87491; 87591; 87661; 87798; 87801; 90471; 90715; G0378; J0290; J2405; J2590; J2790; A9270-GY

== ENCOUNTER 2022-12-22 09:15 | Emergency (ER) | payer OTHER ==
--- NOTE | 2022-12-22 09:47 | ERPHSYRPT ---
- History of Present Illness Time Seen by Provider: 12/22/22 09:44 Source: patient Exam Limitations: no limitations Patient Subjective Stated Complaint: pt alert, resp easy, has congestion and dry cough, Triage Nursing Assessment: pt here for cough, congestion, for a couple days, tested negative for covid and flu yesterday Physician History: Patient is 22-year-old female came to the emergency room with complaining of chest congestion cough flulike symptoms and low-grade fever without chills for last 1 to 2 days. She denies any sick contacts at home. She tested herself for coronavirus and which was negative. Timing/Duration: day(s) (two days) Cough Quality/Degree: productive cough, sputum Possible Cause: no prior episodes Associated Symptoms: cough, nasal congestion, nasal drainage, sore throat, No fever, No chills, No chest pain/soreness, No dizziness, No earache, No facial pain, No headache, No lightheadedness, No muscle aches, No shortness of breath, No sinus infection, No wheezing, No other Allergies/Adverse Reactions: venom-honey bee [bee venom (honey bee)] Allergy (Verified 12/22/22 09:25) Hx Tetanus, Diphtheria Vaccination/Date Given: Yes Hx Influenza Vaccination/Date Given: Yes Hx Pneumococcal Vaccination/Date Given: No Immunizations Up to Date: Yes Travel Risk - International Travel Have you traveled outside of the country in past 3 weeks: No - Coronavirus Screening Are you exhibiting any of the following symptoms?: Yes Symptoms: Cough: New Onset Close contact with a COVID-19 positive Pt in past 14-21 Days: No - Vaccine Status Have you recieved a Covid-19 vaccination: No - Review of Systems Constitutional: No Fever, No Chills Eyes: No Symptoms Ears, Nose, & Throat: Sinus Drainage Respiratory: No Cough, No Dyspnea Cardiac: No Chest Pain, No Edema, No Syncope Abdominal/Gastrointestinal: No Abdominal Pain, No Nausea, No Vomiting, No Diarrhea Genitourinary Symptoms: No Dysuria Musculoskeletal: No Back Pain, No Neck Pain Skin: No Rash Neurological: No Dizziness, No Focal Weakness, No Sensory Changes Psychological: No Symptoms Endocrine: No Symptoms All Other Systems: Reviewed and Negative - Past Medical History Pertinent Past Medical History: Yes Neurological History: No Pertinent History ENT History: No Pertinent History Cardiac History: No Pertinent History Respiratory History: No Pertinent History Endocrine Medical History: No Pertinent History Musculoskeletal History: No Pertinent History GI Medical History: No Pertinent History History: No Pertinent History Psycho-Social History: No Pertinent History Female Reproductive Disorders: No Pertinent History Other Medical History: hx of STD IN PAST - Past Surgical History Past Surgical History: Yes Neuro Surgical History: No Pertinent History Cardiac: No Pertinent History Respiratory: No Pertinent History Gastrointestinal: Appendectomy Genitourinary: No Pertinent History Musculoskeletal: No Pertinent History Female Surgical History: No Pertinent History Other Surgical History: eye surgery - Social History Smoking Status: Never smoker How long have you smoked: 3 yrs Exposure to second hand smoke: No Drug Use: none Patient Lives Alone: No Significant Family History: no pertinent family hx - Female History Hx Last Menstrual Period: month ago Hx Now: No - Nursing Vital Signs Nursing Vital Signs: Initial Vital Signs Temperature 98.4 F 12/22/22 09:37 Pulse Rate 102 H 12/22/22 09:37 Respiratory Rate 18 12/22/22 09:37 Blood Pressure 117/68 12/22/22 09:37 O2 Sat by Pulse Oximetry 98 12/22/22 09:37 Pain Scale Pain Intensity 8 - Physical Exam General Appearance: no apparent distress, alert Eye Exam: PERRL/EOMI, eyes nml inspection Ears, Nose, Throat Exam: normal ENT inspection, TMs normal, moist mucous membranes, pharyngeal erythema Neck Exam: normal inspection, non-tender, supple, full range of motion Respiratory Exam: normal breath sounds, lungs clear, No respiratory distress Cardiovascular Exam: regular rate/rhythm, normal heart sounds Gastrointestinal/Abdomen Exam: soft, No tenderness Back Exam: normal inspection, No CVA tenderness, No vertebral tenderness Extremity Exam: normal inspection, normal range of motion Neurologic Exam: alert, oriented x 3, cooperative, normal mood/affect, sensation nml, No motor deficits Skin Exam: normal color, warm, dry, No rash Lymphatic Exam: No adenopathy SpO2: 100 - Course Nursing assessment & vital signs reviewed: Yes - Radiology Exams Chest X-ray Interpretation: Reviewed by me, Negative, No Pneumonia Ordered Tests: Active Orders 24 hr Category Date Time Status CHEST 2 VIEWS (PA AND LAT) Stat Exams 12/22/22 09:27 Taken [place] Screen Stat Lab 12/22/22 09:52 Completed Lab/Rad Data: Laboratory Results 12/22/22 12/22/22 Range/Units 09:52 09:52 Monoscreen NEGATIVE (Negative) Group A Strep Antibody DETECTED (NEGATIVE) - Progress Progress: improved Air Movement: good Blood Culture(s) Obtained: No Antibiotics given: Yes Counseled pt/family regarding: lab results, diagnosis, need for follow-up, rad results Medical Desision Making - Discussion of managment Reviewed:: Test results Agreed on:: Treatment plan, need for follow-up - Diagnostic Testing Diagnostic test were ordered, analyzed, and reviewed by me: Yes Radiological Interpretation: Interpreted by me, Reviewed by me - Risk of complications The pt has a mod risk of morbidity or mortality based on: Need for prescription drug management - Departure Departure Disposition: Home Clinical Impression: Strep pharyngitis Condition: Stable Critical Care Time: Yes Critical Care Time(excluding separately billable procedures): Critical 30-74 mins Referrals: GHAZAL NEWBERRY MD [Primary Care Provider] - Follow up/PCP as directed Instructions: Strep Throat (DC) Additional Instructions: Discharge/Care Plan ANA RICARDO was seen on 12/22/22 in the Emergency Room. The patient was counseled regarding Diagnosis,Lab results, Imaging studies, need for follow up and when to return to the Emergency Room. Prescriptions given: Discharge Note I have spoken with the patient and/or caregivers. I have explained the patient's condition, diagnosis and treatment plan based on the information available to me at this time. I have answered the patient's and/or caregiver's questions and addressed any concerns. The patient and/or caregivers have as good understanding of the patient's diagnosis, condition and treatment plan as can be expected at this point. The vital signs have been stable. The patient's condition is stable and appropriate for discharge from the emergency department. The patient will pursue further outpatient evaluation with the primary care physician or other designated or consulting physician as outlined in the discharge instructions. The patient and/or caregivers are agreeable to this plan of care and follow-up instructions have been explained in detail. The patient and/or caregivers have received these instruction. The patient/and or caregivers are aware that any significant change in condition or worsening of symptoms should prompt an immediate return to this or the closest emergency department or call 911. ANA RICARDO was seen on 12/22/22 n the Emergency Room. At that time you were treated for an emergent condition, during your visit Laboratory, Radiology and/or other procedures may have been ordered. It is very important that you follow-up with your Primary Care Physician GHAZAL NEWBERRY within the next 24-48 hours to review your Emergency Room visit and the final results of testing that was ordered. Some test results such as Urine Cultures, Blood Cultures, and other cultures if ordered will not be finalized for 24-48 hours. If you do not have a Primary Care Provider please call the medical records department at [phone] ext [phone] to obtain a copy of your results or you may sign into our patient portal to obtain these results by visiting us @ [email or web address] and completing the following steps: 1. Click on the Patient Portal link 2. Click the Patient Self Enrollment Link to complete the enrollment form and entering your 3. Once the enrollment form is completed you will receive an email with a temporary ID and password at the email address you provided. 4. Next choose a user name and password. Your user name must be at least 4 characters long and your password must be at least 4 characters long. 5. Choose a security question from the list and provide your answer to the question. If you already have signed into the Health Portal you may access your Health Care Information 29/04 by the following steps: 1. Login to our website @ [email or web address] 2. Enter your original user name and password. FAQS The [facility] Health Portal is an online tool that contains your Lab Results, Radiology Reports, Visit History, Discharge Instructions and Health Summary Lab and Radiology Results will not be available for 72 hours on the portal. The Portal is a secure site, passwords are encryted and URLs are re-written so they cannot be copied and pasted. You and authorized family members are the only ones who can access your Portal. Also there is a timeout feature that protects your information if you leave the Portal page open. If you have technical difficulty please use the Contact Us link on the page this will allow you to submit any questions you have regarding the Portal or you may contact the Medical Record Department at [phone] ext [phone]. Prescriptions: Amoxicillin 500 mg PO TID #21 tablet Benzonatate 100 mg PO QID #20 cap
[2022-12-22] MEDS ORDERED: Rocephin 1000 MG INJ IM ONE (10:27)
[2022-12-22] MEDS ORDERED: XYLOCAINE 1% HCL 20 ML MDV ONE (10:53)
[2022-12-22] MEDS ORDERED: Rocephin 1000 MG INJ ONE (10:53)
[2022-12-22] MEDS ORDERED: TYLENOL EXTRA STRENGTH 500 MG PO PRN (11:03)
[2022-12-22] MEDS ORDERED: TYLENOL EXTRA STRENGTH 500 MG ONE (11:04)
[2022-12-22 11:32] VITALS: BP 90/67; PULSE 78; O2SAT 98
--- NOTE | 2022-12-22 20:10 | XRAY ---
Indication: Cough and congestion. Comparison: October 23, 2021 PA/lateral chest again demonstrates normal heart, lungs, and bony thorax.
== END 2022-12-22 11:30 | disposition home or self-care (01) ==
LOC: ED 09:15
DX: J02.0 Streptococcal pharyngitis (principal); R50.9 Fever, unspecified; R05.1 Acute cough; Z28.310 Unvaccinated for COVID-19
CPT/HCPCS: 36415; 71046; 86308; 87651; 96372; 99283; 99291; J0696; A9270-GY

== ENCOUNTER 2024-03-16 14:28 | Emergency (ER) | payer SELFPAY ==
--- NOTE | 2024-03-16 14:34 | ERPHSYRPT ---
- History of Present Illness Time Seen by Provider: 03/16/24 14:34 Source: patient Exam Limitations: no limitations Physician History: This is a 23-year-old white female patient of Dr. Newberry who came in by private vehicle secondary to left ankle pain. Patient states she "rolled" her left ankle approximately 3 hours prior to arrival. She is having worsening pain in the last 3 hours. Patient has had 6-7 left ankle fractures in the past. When she was younger she was involved with gymnastics. Method of Injury: twisted Occurred: just prior to arrival Quality: constant, aching, burning Severity of Pain-Max: mild (To moderate) Severity of Pain-Current: mild (To moderate) Lower Extremities Pain: ankle: left Modifying Factors: Improves With: movement Associated Symptoms: other (Can bear weight but hurts to do so) Allergies/Adverse Reactions: venom-honey bee [bee venom (honey bee)] Allergy (Verified 12/22/22 09:25) Home Medications: Etonogestrel [Nexplanon] 68 mg SQ LUNCH 03/16/24 [History] Hx Tetanus, Diphtheria Vaccination/Date Given: Yes Hx Influenza Vaccination/Date Given: Yes Hx Pneumococcal Vaccination/Date Given: No Travel Risk - International Travel Have you traveled outside of the country in past 3 weeks: No - Emerging Infectious Disease Are you exhibiting symptoms associated with any current EIDs: No - Review of Systems Constitutional: No Symptoms Eyes: No Symptoms Ears, Nose, & Throat: No Symptoms Respiratory: No Symptoms Cardiac: No Symptoms Abdominal/Gastrointestinal: No Symptoms Genitourinary Symptoms: No Symptoms Musculoskeletal: Injury (Left ankle) Skin: No Symptoms Neurological: No Symptoms Psychological: No Symptoms Endocrine: No Symptoms Hematologic/Lymphatic: No Symptoms Immunological/Allergic: No Symptoms All Other Systems: Reviewed and Negative - Past Medical History Pertinent Past Medical History: Yes Neurological History: No Pertinent History ENT History: No Pertinent History Cardiac History: No Pertinent History Respiratory History: No Pertinent History Endocrine Medical History: No Pertinent History Musculoskeletal History: No Pertinent History GI Medical History: No Pertinent History History: No Pertinent History Psycho-Social History: No Pertinent History Female Reproductive Disorders: No Pertinent History Other Medical History: hx of STD IN PAST - Past Surgical History Past Surgical History: Yes Neuro Surgical History: No Pertinent History Cardiac: No Pertinent History Respiratory: No Pertinent History Gastrointestinal: Appendectomy Genitourinary: No Pertinent History Musculoskeletal: No Pertinent History Female Surgical History: No Pertinent History Other Surgical History: eye surgery Significant Family History: no pertinent family hx - Social History Smoking Status: Never smoker How long have you smoked: 3 yrs Exposure to second hand smoke: No Drug Use: none Patient Lives Alone: No - Nursing Vital Signs Nursing Vital Signs: Initial Vital Signs Temperature 98.7 F 03/16/24 14:48 Pulse Rate 87 03/16/24 14:48 Respiratory Rate 16 03/16/24 14:48 Blood Pressure 115/70 03/16/24 14:48 O2 Sat by Pulse Oximetry 98 03/16/24 14:48 Pain Scale Pain Intensity 7 - Physical Exam General Appearance: no apparent distress, alert, anxiety Eyes, Ears, Nose, Throat Exam: normal ENT inspection, moist mucous membranes Neck Exam: normal inspection, non-tender, supple, full range of motion Cardiovascular/Respiratory Exam: chest non-tender, no respiratory distress Gastrointestinal/Abdominal Exam: non-tender Back Exam: normal inspection, normal range of motion, No CVA tenderness, No vertebral tenderness Hips Exam: bilateral: non-tender, normal inspection, normal range of motion, no evidence of injury Legs Exam: bilateral leg: non-tender, normal inspection, normal range of motion, no evidence of injury Knees Exam: bilateral knee: non-tender, normal inspection, normal range of motion, no evidence of injury Ankle Exam: right ankle: non-tender, normal inspection, normal range of motion, no evidence of injury, left ankle: soft tissue tenderness, swelling (Mild) Foot Exam: bilateral foot: non-tender, normal inspection, normal range of motion, no evidence of injury Neuro/Tendon Exam: normal sensation, normal motor functions, normal tendon functions, responds to pain, no evidence tendon injury Mental Status Exam: alert, oriented x 3, cooperative Skin Exam: normal color, warm, dry SpO2 Interpretation: normal O2 Delivery: Room Air - Course Nursing assessment & vital signs reviewed: Yes Ordered Tests: Active Orders 24 hr Category Date Time Status Alexander Bandage Application -[facility] STAT Care 03/16/24 16:10 Ordered ANKLE (3 VIEWS) Stat Exams 03/16/24 15:04 Taken - Progress Progress: unchanged Progress Note: 03/16/24 15:16 My medical decision making and the assignment of low complexity to this patient's medical issue today is based on review of the patient's past medical history, review of the patient's medication list, review of patient drug allergy list, history present illness and physical findings on examination. The workup in this patient includes x-ray of the left ankle. Differential diagnosis includes but is not limited to left ankle sprain, left ankle fracture, left ankle dislocation. 03/16/24 16:11 I interpreted the preliminary report of the patient's left ankle. I do not appreciate an acute fracture or dislocation. Patient was told that final report will be read by the radiologist, likely tomorrow, 03/17/2024. If the radiologis t interpretation is different and clinically affects the patient's management, she will receive a phone call from us. Counseled pt/family regarding: diagnosis, need for follow-up, rad results Medical Desision Making - Diagnostic Testing Diagnostic test were ordered, analyzed, and reviewed by me: Yes Radiological Interpretation: Reviewed by me, Teleradiologist Report - Risk of complications Low Risk: Low risk of morbidity from additional dx testing or treatment - Departure Departure Disposition: Home Clinical Impression: Left ankle sprain Condition: Stable Critical Care Time: No Referrals: GHAZAL NEWBERRY MD [Primary Care Provider] - Follow up/PCP as directed Additional Instructions: Ice pack to the area 3 times a day for the next 72 hours. Minimize weightbearing. Use Tylenol and ibuprofen for pain control. Elevate the left lower extremity above the level of your heart. If your pain persists beyond the next 48 hours at the same level, may follow-up with Dr. Hendrickson (podiatry), or your primary care provider, or walk-in clinic [facility] ortho pedic surgery services. It is a walk-in clinic and open Saturday through Saturday 8 AM to 10 AM. You do not need to have an appointment to be evaluated.
[2024-03-16 14:58] VITALS: RESP 16; TEMP 98.7
[2024-03-16 15:49] VITALS: PULSE 83
[2024-03-16 16:12] VITALS: BP 100/57; O2SAT 98
--- NOTE | 2024-03-16 16:28 | XRAY ---
Indication: Pain following injury. Comparison: May 11, 2020 3 view left ankle demonstrates new mild lateral soft tissue swelling. No other bony, articular, or soft tissue abnormalities.
== END 2024-03-16 16:25 | disposition home or self-care (01) ==
LOC: ED 14:28
DX: S93.402A Sprain of unspecified ligament of left ankle, initial encounter (principal); X50.0XXA Overexertion from strenuous movement or load, initial encounter
CPT/HCPCS: 73610; 99283

== ENCOUNTER 2024-12-06 15:58 | Emergency (ER) | payer OTHER ==
[2024-12-06 16:47] VITALS: PULSE 79; TEMP 98.4; O2SAT 99
--- NOTE | 2024-12-06 17:00 | ERPHSYRPT ---
- History of Present Illness Time Seen by Provider: 12/06/24 17:00 Source: patient Exam Limitations: no limitations Patient Subjective Stated Complaint: tiny red bumps on chest and arms Triage Nursing Assessment: Pt was brought to the ER by her mother, vitals wnl, denies pain, rash began yesterday on her chest and are on her arms today, pulses normal, skin n/w/d, denies difficulty breathing, denies chest pain, doesn't appear to be in any distress Allergies/Adverse Reactions: venom-honey bee [bee venom (honey bee)] Allergy (Verified 12/22/22 09:25) Home Medications: Etonogestrel [Nexplanon] 68 mg SQ LUNCH 03/16/24 [History] Hx Tetanus, Diphtheria Vaccination/Date Given: Yes Hx Influenza Vaccination/Date Given: Yes Hx Pneumococcal Vaccination/Date Given: No Travel Risk - International Travel Have you traveled outside of the country in past 3 weeks: No - Emerging Infectious Disease Are you exhibiting symptoms associated with any current EIDs: No - Past Medical History Pertinent Past Medical History: Yes Neurological History: No Pertinent History ENT History: No Pertinent History Cardiac History: No Pertinent History Respiratory History: No Pertinent History Endocrine Medical History: No Pertinent History Musculoskeletal History: No Pertinent History GI Medical History: No Pertinent History History: No Pertinent History Psycho-Social History: No Pertinent History Female Reproductive Disorders: No Pertinent History Other Medical History: hx of STD IN PAST - Past Surgical History Past Surgical History: Yes Neuro Surgical History: No Pertinent History Cardiac: No Pertinent History Respiratory: No Pertinent History Gastrointestinal: Appendectomy Genitourinary: No Pertinent History Musculoskeletal: No Pertinent History Female Surgical History: No Pertinent History Other Surgical History: eye surgery Significant Family History: no pertinent family hx - Female History Hx Last Menstrual Period: 02/20 Hx Now: No - Social History Smoking Status: Current every day smoker How long have you smoked: vape Exposure to second hand smoke: No Drug Use: none - Social Determinants of Health Will the patient participate in the screening: Yes Do you worry about a steady place to live?: No Do you have any problems with any of the following?: No known problems In the past 12 months,have you had to go without utilities?: No Transportation Issues: No Has anyone in your support network made you feel unsafe?: No Have you or anyone in your house had to go w/o enough food: No - Nursing Vital Signs Nursing Vital Signs: Initial Vital Signs Temperature 98.4 F 12/06/24 16:42 Pulse Rate 79 12/06/24 16:42 Blood Pressure 114/83 12/06/24 16:42 O2 Sat by Pulse Oximetry 99 12/06/24 16:42 Pain Scale Pain Intensity 0 - Physical Exam SpO2: 99 - Departure Departure Disposition: Home Clinical Impression: Contact dermatitis and eczema Condition: Good Critical Care Time: No Referrals: GHAZAL NEWBERRY MD [Primary Care Provider] - Follow up/PCP as directed Instructions: Contact dermatitis, Eczema (atopic dermatitis) Prescriptions: predniSONE [Prednisone] 20 mg PO DAILY 4 Days #4 tablet
[2024-12-06] MEDS ORDERED: DELTASONE 20 MG ONE (17:33)
[2024-12-06] MEDS: DELTASONE 20 MG PO ONE (17:35)
[2024-12-06 17:38] VITALS: BP 95/61
[2024-12-06] MEDS: ANUSOL-HC 2.5% CREAM 30 GM TP ONE (17:55)
== END 2024-12-06 18:02 | disposition home or self-care (01) ==
LOC: ED 15:58
DX: L25.9 Unspecified contact dermatitis, unspecified cause (principal); Z79.52 Long term (current) use of systemic steroids; Z79.899 Other long term (current) drug therapy; Z72.0 Tobacco use
CPT/HCPCS: 99281; 99283; A9270-GY